=== PATIENT | male | born 1950 | race Caucasian/White ===

== ENCOUNTER 2021-08-24 15:46 | Emergency (ER) | payer OTHER ==
[2021-08-24] MEDS ORDERED: NA CHLORIDE 0.9% 250 ML ONE (16:06)
[2021-08-24] MEDS ORDERED: CASIRIVIMAB/IMDEVIMAB 10 ML VIAL ONE (16:08)
--- NOTE | 2021-08-24 17:47 | EDPHYS ---
Physician Documentation [facility] Name: Kai Peres Age: 71 yrs Sex: Male : 1950 Arrival Date: 08/24/2021 Time: 15:47 Bed 5 Private MD: ED Physician Michael Hanson HPI: 08/24 16:11 This 71 yrs old Male presents to ER via Ambulatory with complaints of Covid + -Wants kb Infusion. 16:12 The patient or guardian reports cough, that is intermittent, described as mild. Onset: kb The symptoms/episode began/occurred yesterday. Severity of symptoms: At their worst the symptoms were mild, in the emergency department the symptoms are unchanged. Modifying factors: The symptoms are alleviated by nothing, the symptoms are aggravated by nothing. Associated signs and symptoms: Pertinent positives: fever, Pertinent negatives: chest pain, diarrhea, ear ache, nausea, rhinorrhea, sore throat, vomiting. The patient has not experienced similar symptoms in the past. The patient has not recently seen a physician. Pt reports cough, fever, and bodyaches that started yesterday. States he was exposed to someone with covid, took 2 home tests this morning and both were positive. States he read about the monoclonal antibodies and came to have the infusion.. Historical: - Allergies: 16:05 Aquaphor; vg1 - Home Meds: 16:05 Simvastatin Oral [Active]; vg1 - PMHx: 16:05 Hypercholesterolemia; Squamous Cell Carcinoma; vg1 - Immunization history:: Client reports receiving the 2nd dose of the Covid vaccine. - Social history:: Smoking status: Patient reports use of chewing tobacco. ROS: 16:11 Cardiovascular: Negative for chest pain, palpitations, and edema. kb 16:11 Constitutional: Positive for body aches, chills, fever. 16:11 Respiratory: Positive for cough, Negative for dyspnea on exertion, hemoptysis, orthopnea, pleurisy, shortness of breath, sputum production. 16:11 All other systems are negative. Exam: 16:11 Constitutional: This is a well developed, well nourished patient who is awake, alert, kb and in no acute distress. Head/Face: Normocephalic, atraumatic. ENT: Moist Mucous membranes Respiratory: Respirations even and unlabored. No increased work of breathing, no retractions or nasal flaring. Skin: Warm, dry with normal turgor. Normal color. MS/ Extremity: Pulses equal, no cyanosis. Neurovascular intact. Full, normal range of motion. Neuro: Awake and alert, GCS 15, oriented to person, place, time, and situation. Moves all extremities. Normal gait. Psych: Awake, alert, with orientation to person, place and time. Behavior, mood, and affect are within normal limits. Vital Signs: 16:03 BP 139 / 79; Pulse 76; Resp 18; Temp 99.5; Pulse Ox 100% ; Weight 113.4 kg; Height 6 vg1 ft. 2 in. (187.96 cm); Pain 0/10; 17:30 BP 139 / 80; Pulse 65; Resp 17; Pulse Ox 100% ; kd3 16:03 Body Mass Index 32.10 (113.40 kg, 187.96 cm) vg1 MDM: 15:51 Patient medically screened. kb 16:10 Data reviewed: vital signs, nurses notes. Data interpreted: Pulse oximetry: on room air kb is 100 %. Interpretation: normal. 17:46 Counseling: I had a detailed discussion with the patient and/or guardian regarding: the kb historical points, exam findings, and any diagnostic results supporting the discharge/admit diagnosis, the need for outpatient follow up, a family practitioner, to return to the emergency department if symptoms worsen or persist or if there are any questions or concerns that arise at home. Administered Medications: 16:30 Drug: REGEN-COV Dose Pack 120 mg/mL-120 mg/mL (EUA) 1 application Route: IV; Rate: kd3 calculated rate; Site: right forearm; 17:30 Follow up: IV Status: Completed infusion; IV Intake: 100ml kd3 17:30 Follow up: IV Status: Completed infusion; IV Intake: 100ml kd3 17:50 Drug: Tessalon Perle (benzonatate) 100 mg Route: PO; kd3 17:57 Follow up: Response: No adverse reaction kd3 Disposition Summary: 08/24/21 17:46 Discharge Ordered Location: Home kb Condition: Stable kb Diagnosis - Coronavirus infection, unspecified kb Followup: kb - With: Emergency Department - When: As needed - Reason: Worsening of condition Followup: kb - With: Private Physician - When: 2 - 3 days - Reason: Recheck today's complaints, Continuance of care, Re-evaluation by your physician Discharge Instructions: - Discharge Summary Sheet kb - COVID-19 kb Forms: - Medication Reconciliation Form kb - Thank You Letter kb - Antibiotic Education kb - Prescription Opioid Use kb Prescriptions: - Tessalon Perles 100 mg Oral Capsule - take 1 capsule by ORAL route every 8 hours As needed; 15 capsule; Refills: 0, kb Product Selection Permitted Signatures: Oliva Radford, Shahla Etienne, RN RN vg1 Asha Damon RN RN kd3
--- NOTE | 2021-08-24 17:47 | ER ---
Nurse's Notes [facility] Name: Kai Peres Age: 71 yrs Sex: Male : 1950 Arrival Date: 08/24/2021 Time: 15:47 Bed 5 Private MD: Diagnosis: Coronavirus infection, unspecified Presentation: 08/24 16:03 Chief complaint: Patient states: cough x2 days and 'low grade fever' yesterday. States vg1 took a home covid test and results were positive. Denies chest pain. Coronavirus screen: Vaccine status: Patient reports receiving the 2nd dose of the covid vaccine. Client denies travel out of the [place] in the last 14 days. Ebola Screen: Patient negative for fever greater than or equal to 101.5 degrees Fahrenheit, and additional compatible Ebola Virus Disease symptoms. Initial Sepsis Screen: Does the patient meet any 2 criteria? No. Patient's initial sepsis screen is negative. Does the patient have a suspected source of infection? No. Patient's initial sepsis screen is negative. Risk Assessment: Do you want to hurt yourself or someone else? Patient reports no desire to harm self or others. Onset of symptoms was August 22, 2021. 16:03 Method Of Arrival: Ambulatory vg1 16:03 Acuity: ERIK 3 vg1 Triage Assessment: 16:05 General: Appears in no apparent distress. comfortable, Behavior is calm, cooperative. vg1 Pain: Denies pain. 16:05 EENT: Reports nasal congestion. Neuro: No deficits noted. Cardiovascular: No deficits kd3 noted. Respiratory: Reports cough that is Airway is patent Respiratory effort is even, unlabored, Respiratory pattern is regular, symmetrical, Breath sounds are clear bilaterally. GI: No signs and/or symptoms were reported involving the gastrointestinal system. : No signs and/or symptoms were reported regarding the genitourinary system. Derm: No deficits noted. Musculoskeletal: No deficits noted. Historical: - Allergies: 16:05 Aquaphor; vg1 - Home Meds: 16:05 Simvastatin Oral [Active]; vg1 - PMHx: 16:05 Hypercholesterolemia; Squamous Cell Carcinoma; vg1 - Immunization history:: Client reports receiving the 2nd dose of the Covid vaccine. - Social history:: Smoking status: Patient reports use of chewing tobacco. Screenin:05 Abuse screen: Denies threats or abuse. Denies injuries from another. Nutritional kd3 screening: No deficits noted. Tuberculosis screening: No symptoms or risk factors identified. Fall Risk None identified. Assessment: 16:05 General: SEE TRIAGE NOTE. kd3 17:30 Reassessment: PT D/C ON HOLD FOR OBS TIME. REGEN-COV COMPLETED. kd3 18:31 Reassessment: pt dc home ambulatory. diagnosis COVID. kd3 Vital Signs: 16:03 BP 139 / 79; Pulse 76; Resp 18; Temp 99.5; Pulse Ox 100% ; Weight 113.4 kg; Height 6 vg1 ft. 2 in. (187.96 cm); Pain 0/10; 17:30 BP 139 / 80; Pulse 65; Resp 17; Pulse Ox 100% ; kd3 16:03 Body Mass Index 32.10 (113.40 kg, 187.96 cm) vg1 ED Course: 15:47 Patient arrived in ED. ds1 15:51 Oliva Radford [facility]-C [facility] kb 15:51 Michael Hanson MD is Attending Physician. kb 15:56 Asha Damon RN is Primary Nurse. kd3 16:00 Inserted saline lock: 22 gauge in right forearm, using aseptic technique. kd3 16:05 Triage completed. vg1 16:05 Arm band placed on. vg1 16:05 Patient has correct armband on for positive identification. Bed in low position. Call kd3 light in reach. Side rails up X2. 17:30 IV discontinued, intact, bleeding controlled, No redness/swelling at site. Pressure kd3 dressing applied. 18:31 No provider procedures requiring assistance completed. kd3 Administered Medications: 16:30 Drug: REGEN-COV Dose Pack 120 mg/mL-120 mg/mL (EUA) 1 application Route: IV; Rate: kd3 calculated rate; Site: right forearm; 17:30 Follow up: IV Status: Completed infusion; IV Intake: 100ml kd3 17:30 Follow up: IV Status: Completed infusion; IV Intake: 100ml kd3 17:50 Drug: Tessalon Perle (benzonatate) 100 mg Route: PO; kd3 17:57 Follow up: Response: No adverse reaction kd3 Intake: 17:30 IV: 100ml; Total: 100ml. kd3 17:30 IV: 100ml; Total: 200ml. kd3 Outcome: 17:46 Discharge ordered by . uzma 18:31 Discharged to home ambulatory. kd3 18:31 Condition: stable 18:31 Discharge instructions given to patient, Instructed on discharge instructions, follow up and referral plans. medication usage, Demonstrated understanding of instructions, follow-up care, medications, Prescriptions given X 1. 18:32 Patient left the ED. kd3 Signatures: Oliva Radford, TEMPLATE WORKER-C TEMPLATE WORKER-Ila Xie ds1 Shahla Blackman, RN RN vg1 Asha Damon, RN RN kd3
[2021-08-24] MEDS ORDERED: BENZONATATE 100 MG CAP PO ONE (17:51)
[2021-08-24 18:38] VITALS: TEMP 99.5; O2SAT 100
[2021-08-24 18:40] VITALS: BP 139/80
== END 2021-08-24 18:32 | disposition home or self-care (01) ==
LOC: ER 15:46
DX: U07.1 COVID-19 (principal); E78.00 Pure hypercholesterolemia, unspecified; F17.220 Nicotine dependence, chewing tobacco, uncomplicated; Z88.8 Allergy status to other drugs, medicaments and biological substances
CPT/HCPCS: 96365; 99283; J7050

== ENCOUNTER 2022-08-15 19:29 | Observation (INO) | payer OTHER ==
--- OUTSIDE RECORDS SUMMARY | 2022-08-15 19:34 | XMS REPORT | Continuity of Care Document ---
:1950 Author Organization [facility] t Address [address] [place] [address] [address]. [address] [place] [address] Care Team Providers Name Role Phone Darnell Thacker Attending Clinician Unavailable Miguel A Attending Clinician Unavailable Darnell Thacker Attending Clinician [phone] Darnell Thacker Admitting Clinician Unavailable Miguel A Admitting Clinician Unavailable Payers Payer Name Policy Type Policy Number Effective Date Expiration Date S ruy MEDICARE B-[place]: [id number] 2016 [email or web address] 00:00:00 [employer] (MEDICARE [id number] SUPPLEMENT) Problems Condition Condition Condition Status Onset Resolution Last Treating Co mments Source Name Details Category Date Date Treatment Clinician Date Acute tear Acute Tear Problem Active A zalea of lateral of Lateral 6-29 Or thope meniscus Meniscus 00:00: dic of left of Left 00 Sports knee Knee Medicin e Pain in Pain in Problem Active Monika left lower Left Lower 6-29 Or thope limb Limb 00:00: dic 00 Sports Medicin e Swelling Swelling Problem Active Azale a of lower of Lower 6-29 Orthop e leg Leg 00:00: dic 00 Sports Medicin e Acute tear Acute Tear Problem Active A zalea of medial of Medial 6-29 Orth ope meniscus Meniscus 00:00: dic of left of Left 00 Sports knee Knee Medicin e Tear of Tear of Problem Active Monika lateral Lateral 6-15 Orthope meniscus Meniscus 00:00: dic of knee of Knee 00 Sports Medicin e Tear of Tear of Problem Active Monika medial Medial 02-28 Orthope meniscus Meniscus 00:00: dic of knee of Knee 00 Sports Medicin e Chondromal Chondromal Problem Active A zaameea acia of acia of 02-28 Orthope left knee Left Knee 00:00: dic 00 Sports Medicin e Pain of Pain of Problem Active Monika left knee Left Knee 02-28 Orth ope joint Joint 00:00: dic 00 Sports Medicin e Allergies, Adverse Reactions, Alerts Allergy Allergy Status Severity Reaction(s) Onset Inactive Treating Comm ents Source Name Type Date Date Clinician No Known DA Active [facility] 02-28 [place] [facility] 00:[facility]: [facility] 00 [facility] Social History Smoking Status Start Date Stop Date Source Never Smoker [facility] Sports Medicine Medications Ordered Filled Start Stop Current Ordering Indication Dosage Frequency Signature Comments Components Source Medication Medication Date Date Medication? Clinician (SIG) Name Name azmaria del carmentayla azithromyci No azithromyc Monika n 250 mg n 250 mg in 250 mg Or thope tablet TAKE tablet TAKE tablet dic 2 TABLETS 2 TABLETS TAKE 2 Spo rts BY MOUTH BY MOUTH TABLETS BY M edicin TODAY, THEN TODAY, THEN MOUTH e TAKE 1 TAKE 1 TODAY, TABLET TABLET THEN TAKE DAILY FOR 4 DAILY FOR 4 1 TABLET DAYS DAYS DAILY FOR 4 DAYS benzonatate benzonatate No benzonatat Monika 100 mg 100 mg e 100 mg Orthope capsule capsule capsule dic TAKE 1 TAKE 1 TAKE 1 Sports CAPSULE BY CAPSULE BY CAPSULE BY Medicin MOUTH EVERY MOUTH EVERY MOUTH e 8 HOURS 8 HOURS EVERY 8 NEEDED FOR NEEDED FOR HOURS COUGH COUGH NEEDED FOR COUGH fluticasone fluticasone No fluticason Monika propionate propionate e Ort hope 50 50 propionate dic mcg/actuati mcg/actuati 50 S ports on nasal on nasal mcg/actuat M edicin spray,suspe spray,suspe ion nasal e nsion 2 nsion 2 spray,susp PUFFS NASAL PUFFS NASAL ension 2 EVERY EVERY PUFFS MORNING MORNING NASAL EVERY MORNING montelukast montelukast No montelukas Monika 10 mg 10 mg t 10 mg Orthope tablet TAKE tablet TAKE tablet dic 1 TABLET BY 1 TABLET BY TAKE 1 Sports MOUTH EVERY MOUTH EVERY TABLET BY Medicin DAY IN THE DAY IN THE MOUTH e MORNING MORNING EVERY DAY IN THE MORNING mupirocin 2 mupirocin 2 No mupirocin Monika % topical % topical 2 % Ortho pe ointment ointment topical dic APPLY TO APPLY TO ointment Spo rts OPEN SORES OPEN SORES APPLY TO Medicin ON LEG ON LEG OPEN SORES e TWICE A DAY TWICE A DAY ON LEG TWICE A DAY prednisone prednisone No prednisone Monika 10 mg 10 mg 10 mg Orthope tablet TAKE tablet TAKE tablet dic 1 TABLET BY 1 TABLET BY TAKE 1 Sports MOUTH TWICE MOUTH TWICE TABLET BY Medicin A DAY A DAY MOUTH e TWICE A DAY simvastatin simvastatin No simvastati Monika 20 mg 20 mg n 20 mg [facility]ope tablet TAKE tablet TAKE tablet dic 1 TABLET BY 1 TABLET BY TAKE 1 Sports MOUTH EVERY MOUTH EVERY TABLET BY Medicin DAY IN THE DAY IN THE MOUTH e EVENING EVENING EVERY DAY IN THE EVENING triamcinolo triamcinolo No triamcinol Monika ne ne one Orthope acetonide acetonide acetonide dic 0.1 % 0.1 % 0.1 % Sports topical topical topical Medici n cream APPLY cream APPLY cream e TWICE DAILY TWICE DAILY APPLY TO RASH ON TO RASH ON TWICE ABDOMEN UP ABDOMEN UP DAILY TO TO 2 TO 2 RASH ON WEEKS/MONTH WEEKS/MONTH ABDOMEN UP NEEDED. NEEDED. TO 2 WEEKS/SONJA H NEEDED. triamcinolo triamcinolo No triamcinol Monika ne ne one Orthope acetonide acetonide acetonide dic 0.1 % 0.1 % 0.1 % Se[employer] topical topical topical Medici n ointment ointment ointment e APPLY TO APPLY TO APPLY TO AFFECTED AFFECTED AFFECTED AREA TWICE AREA TWICE AREA TWICE A DAY FOR 2 A DAY FOR 2 A DAY FOR WEEKS TO A WEEKS TO A 2 WEEKS TO MONTH MONTH A MONTH acetaminoph acetaminoph No 1 Q6H acetaminop Monika en 300 en 300 hen 300 Orthope mg-codeine mg-codeine mg-codeine dic 30 mg 30 mg 30 mg Sports tablet Take tablet Take tablet Medicin 1 tablet 1 tablet Take 1 e every 6 every 6 tablet hours by hours by every 6 oral route oral route hours by as needed. as needed. oral route as needed. aspirin 81 aspirin 81 No 1 Q1D aspirin 81 Monika mg mg mg Orthope tablet,ian tablet,ian tablet,del dic yed release yed release ayed S ports Take 1 Take 1 release Medicin tablet tablet Take 1 e every day every day tablet by oral by oral every day route as route as by oral directed. directed. route as directed. azithromyci azithromyci No azithromyc Monika n 250 mg n 250 mg in 250 mg Or thope tablet TAKE tablet TAKE tablet dic 2 TABLETS 2 TABLETS TAKE 2 Spo rts BY MOUTH BY MOUTH TABLETS BY M edicin TODAY, THEN TODAY, THEN MOUTH e TAKE 1 TAKE 1 TODAY, TABLET TABLET THEN TAKE DAILY FOR 4 DAILY FOR 4 1 TABLET DAYS DAYS DAILY FOR 4 DAYS benzonatate benzonatate No benzonatat Monika 100 mg 100 mg e 100 mg Orthope capsule capsule capsule dic TAKE 1 TAKE 1 TAKE 1 Sports CAPSULE BY CAPSULE BY CAPSULE BY Medicin MOUTH EVERY MOUTH EVERY MOUTH e 8 HOURS 8 HOURS EVERY 8 NEEDED FOR NEEDED FOR HOURS COUGH COUGH NEEDED FOR COUGH fluticasone fluticasone No fluticason Monika propionate propionate e Ort hope 50 50 propionate dic mcg/actuati mcg/actuati 50 S ports on nasal on nasal mcg/actuat M edicin spray,suspe spray,suspe ion nasal e nsion 2 nsion 2 spray,susp PUFFS NASAL PUFFS NASAL ension 2 EVERY EVERY PUFFS MORNING MORNING NASAL EVERY MORNING metaxalone metaxalone No metaxalone Monika 800 mg 800 mg 800 mg [facility] tablet TAKE tablet TAKE tablet dic 1 TABLET BY 1 TABLET BY TAKE 1 Sports MOUTH THREE MOUTH THREE TABLET BY Medicin TIMES DAILY TIMES DAILY MOUTH e NEEDED NEEDED THREE TIMES DAILY NEEDED methocarbam methocarbam No 1 Q6H methocarba Monika ol 500 mg ol 500 mg mol 500 mg Orthope tablet Take tablet Take tablet dic 1 tablet 1 tablet Take 1 Sport s every 6 every 6 tablet Medicin hours by hours by every 6 e oral route oral route hours by as needed. as needed. oral route as needed. montelukast montelukast No montelukas Monika 10 mg 10 mg t 10 mg Orthope tablet TAKE tablet TAKE tablet dic 1 TABLET BY 1 TABLET BY TAKE 1 Sports MOUTH EVERY MOUTH EVERY TABLET BY Medicin DAY IN THE DAY IN THE MOUTH e MORNING MORNING EVERY DAY IN THE MORNING mupirocin 2 mupirocin 2 No mupirocin Monika % topical % topical 2 % Ortho pe ointment ointment topical dic APPLY TO APPLY TO ointment Spo rts OPEN SORES OPEN SORES APPLY TO Medicin ON LEG ON LEG OPEN SORES e TWICE A DAY TWICE A DAY ON LEG TWICE A DAY ondansetron ondansetron No 1 Q4H ondansetro Monika HCl 4 mg HCl 4 mg n HCl 4 mg O rthope tablet Take tablet Take tablet dic 1 tablet 1 tablet Take 1 Sport s every 4 every 4 tablet Medicin hours by hours by every 4 e oral route oral route hours by as needed. as needed. oral route as needed. prednisone prednisone No prednisone Monika 10 mg 10 mg 10 mg [facility] tablet TAKE tablet TAKE tablet dic 1 TABLET BY 1 TABLET BY TAKE 1 Sports MOUTH TWICE MOUTH TWICE TABLET BY Medicin A DAY A DAY MOUTH e TWICE A DAY simvastatin simvastatin No simvastati Monika 20 mg 20 mg n 20 mg [facility] tablet TAKE tablet TAKE tablet dic 1 TABLET BY 1 TABLET BY TAKE 1 Sports MOUTH EVERY MOUTH EVERY TABLET BY Medicin DAY IN THE DAY IN THE MOUTH e EVENING EVENING EVERY DAY IN THE EVENING triamcinolo triamcinolo No triamcinol Monika ne ne one Orthope acetonide acetonide acetonide dic 0.1 % 0.1 % 0.1 % SeatMe topical topical topical Medici n cream APPLY cream APPLY cream e TWICE DAILY TWICE DAILY APPLY TO RASH ON TO RASH ON TWICE ABDOMEN UP ABDOMEN UP DAILY TO TO 2 TO 2 RASH ON WEEKS/MONTH WEEKS/MONTH ABDOMEN UP NEEDED. NEEDED. TO 2 WEEKS/SONJA H NEEDED. triamcinolo triamcinolo No triamcinol Monika ne ne one Orthope acetonide acetonide acetonide dic 0.1 % 0.1 % 0.1 % SeatMe topical topical topical Medici n ointment ointment ointment e APPLY TO APPLY TO APPLY TO AFFECTED AFFECTED AFFECTED AREA TWICE AREA TWICE AREA TWICE A DAY FOR 2 A DAY FOR 2 A DAY FOR WEEKS TO A WEEKS TO A 2 WEEKS TO MONTH MONTH A MONTH acetaminoph acetaminoph No acetaminop Monika en 300 en 300 hen 300 Orthope mg-codeine mg-codeine mg-codeine dic 30 mg 30 mg 30 mg Sports tablet TAKE tablet TAKE tablet Medicin 1 TABLET BY 1 TABLET BY TAKE 1 e MOUTH EVERY MOUTH EVERY TABLET BY 6 HOURS 6 HOURS MOUTH NEEDED NEEDED EVERY 6 HOURS NEEDED aspirin 81 aspirin 81 No 1 Q1D aspirin 81 Monika mg mg mg Orthope tablet,ian tablet,ian tablet,del dic yed release yed release ayed S ports Take 1 Take 1 release Medicin tablet tablet Take 1 e every day every day tablet by oral by oral every day route as route as by oral directed. directed. route as directed. azithromyci azithromyci No azithromyc Monika n 250 mg n 250 mg in 250 mg Or thope tablet TAKE tablet TAKE tablet dic 2 TABLETS 2 TABLETS TAKE 2 Spo rts BY MOUTH BY MOUTH TABLETS BY M edicin TODAY, THEN TODAY, THEN MOUTH e TAKE 1 TAKE 1 TODAY, TABLET TABLET THEN TAKE DAILY FOR 4 DAILY FOR 4 1 TABLET DAYS DAYS DAILY FOR 4 DAYS benzonatate benzonatate No benzonatat Monika 100 mg 100 mg e 100 mg [facility] capsule capsule capsule dic TAKE 1 TAKE 1 TAKE 1 Sports CAPSULE BY CAPSULE BY CAPSULE BY Medicin MOUTH EVERY MOUTH EVERY MOUTH e 8 HOURS 8 HOURS EVERY 8 NEEDED FOR NEEDED FOR HOURS COUGH COUGH NEEDED FOR COUGH fluticasone fluticasone No fluticason Monika propionate propionate e Ort hope 50 50 propionate dic mcg/actuati mcg/actuati 50 S ports on nasal on nasal mcg/actuat M edicin spray,suspe spray,suspe ion nasal e nsion 2 nsion 2 spray,susp PUFFS NASAL PUFFS NASAL ension 2 EVERY EVERY PUFFS MORNING MORNING NASAL EVERY MORNING metaxalone metaxalone No metaxalone Monika 800 mg 800 mg 800 mg [facility] tablet TAKE tablet TAKE tablet dic 1 TABLET BY 1 TABLET BY TAKE 1 Sports MOUTH THREE MOUTH THREE TABLET BY Medicin TIMES DAILY TIMES DAILY MOUTH e NEEDED NEEDED THREE TIMES DAILY NEEDED methocarbam methocarbam No methocarba Monika ol 500 mg ol 500 mg mol 500 mg [facility] tablet TAKE tablet TAKE tablet dic 1 TABLET BY 1 TABLET BY TAKE 1 Sports MOUTH EVERY MOUTH EVERY TABLET BY Medicin 6 HOURS 6 HOURS MOUTH e NEEDED NEEDED EVERY 6 HOURS NEEDED montelukast montelukast No montelukas Monika 10 mg 10 mg t 10 mg [facility] tablet TAKE tablet TAKE tablet dic 1 TABLET BY 1 TABLET BY TAKE 1 Sports MOUTH EVERY MOUTH EVERY TABLET BY Medicin DAY IN THE DAY IN THE MOUTH e MORNING MORNING EVERY DAY IN THE MORNING mupirocin 2 mupirocin 2 No mupirocin Monika % topical % topical 2 % Ortho pe ointment ointment topical dic APPLY TO APPLY TO ointment Spo rts OPEN SORES OPEN SORES APPLY TO Medicin ON LEG ON LEG OPEN SORES e TWICE A DAY TWICE A DAY ON LEG TWICE A DAY ondansetron ondansetron No ondansetro Monika HCl 4 mg HCl 4 mg n HCl 4 mg O rthope tablet TAKE tablet TAKE tablet dic 1 TABLET BY 1 TABLET BY TAKE 1 Sports MOUTH EVERY MOUTH EVERY TABLET BY Medicin 4 HOURS 4 HOURS MOUTH e NEEDED NEEDED EVERY 4 HOURS NEEDED prednisone prednisone No prednisone Monika 10 mg 10 mg 10 mg [facility] tablet TAKE tablet TAKE tablet dic 1 TABLET BY 1 TABLET BY TAKE 1 Sports MOUTH TWICE MOUTH TWICE TABLET BY Medicin A DAY A DAY MOUTH e TWICE A DAY simvastatin simvastatin No simvastati Monika 20 mg 20 mg n 20 mg [facility] tablet TAKE tablet TAKE tablet dic 1 TABLET BY 1 TABLET BY TAKE 1 Sports MOUTH EVERY MOUTH EVERY TABLET BY Medicin DAY IN THE DAY IN THE MOUTH e EVENING EVENING EVERY DAY IN THE EVENING triamcinolo triamcinolo No triamcinol Monika ne ne one [facility]ope acetonide acetonide acetonide dic 0.1 % 0.1 % 0.1 % Sports topical topical topical Medici n cream APPLY cream APPLY cream e TWICE DAILY TWICE DAILY APPLY TO RASH ON TO RASH ON TWICE ABDOMEN UP ABDOMEN UP DAILY TO TO 2 TO 2 RASH ON WEEKS/MONTH WEEKS/MONTH ABDOMEN UP NEEDED. NEEDED. TO 2 WEEKS/SONJA H NEEDED. triamcinolo triamcinolo No triamcinol Monika ne ne one Orthope acetonide acetonide acetonide dic 0.1 % 0.1 % 0.1 % Sports topical topical topical Medici n ointment ointment ointment e APPLY TO APPLY TO APPLY TO AFFECTED AFFECTED AFFECTED AREA TWICE AREA TWICE AREA TWICE A DAY FOR 2 A DAY FOR 2 A DAY FOR WEEKS TO A WEEKS TO A 2 WEEKS TO MONTH MONTH A MONTH Vital Signs Vital Name Observation Time Observation Value Comments Source Height 2022-03-28 00:00:00 73 [in_i] [facility] BMI (Body Mass 2022-03-28 00:00:00 35.6 kg/m2 [facility] Index) Sports Medicine Body Weight 2022-03-28 00:00:00 270 [lb_av] [facility] Height 2022-02-28 00:00:00 73 [in_i] [facility] BMI (Body Mass 2022-02-28 00:00:00 35.6 kg/m2 [facility] Index) Sports Medicine Body Weight 2022-02-28 00:00:00 270 [lb_av] [facility] Procedures Procedure Date / Time Performed Performing Clinician Sourc e US, doppler, venous 2022-03-28 00:00:00 [facility] Encounters Start End Encounter Admission Attending Care Care Encounter Source Date/Time Date/Time Type Type Clinicians Facility Department ID 2022-03-20 Inpatient RYAN HinojosaARIE DAVISTO [id number] [facility] 11:55:00 Darnell [id number] [place] [facility] 2022-03-28 2022-03-28 Outpatient FOG_Mathews AOSM AOSM [id number] Monika 12:14:00 12:14:00 _Emily [id number] Orth ope dic Sports Medicin e 2022-03-28 2022-03-28 Outpatient FOG_Mathews AOSM AOSM [id number] Monika 12:14:00 12:14:00 _Emily [id number] Orth ope dic Sports Medicin e 2022-03-28 2022-03-28 Outpatient NE Hinojosa RADI [id number] [facility] 11:28:00 11:28:00 Darnell Lopez [place] [facility] 2022-03-28 2022-03-28 Outpatient WASHINGTON Thacker AOSM [id number] 00:00:00 00:00:00 Darnell Abel [id number] 2022-03-28 2022-03-28 Darnell Abel AOS[facility] [place] - Ortho [id number] Monika 00:00:00 00:00:00 MD Kedar: Vielka Roche - Orthope [address] [facility] [place] [address] , Ph. [phone] 2022-03-14 2022-03-14 Outpatient FOG_Mathews AOSM AOSM [id number] Monika 03:03:00 03:03:00 _Emily [id number] Orth ope dic Sports Medicin e 2022-03-13 2022-03-13 Outpatient FOG_Mathews AOSM AOSM [id number] Monika 09:50:00 09:50:00 _Emily [id number] Orth ope dic Sports Medicin e 2022-03-09 2022-03-09 Outpatient NE Hinojosa DAYS [id number] [facility] 08:57:00 08:57:00 Darnell Thompson [place] [facility] 2022-03-09 2022-03-09 Outpatient NE HinojosaTO [id number] [facility] 08:57:00 08:57:00 Darnell [id number] [place] [facility] 2022-03-09 2022-03-09 Outpatient Kedar AOIVONE AOSM [id number] 00:00:00 00:00:00 Patrick Page [id number] 2022-03-09 2022-03-09 Darnell Page AOSM [place] - Ortho [id number] Monika 00:00:00 00:00:00 MD Kedar: Vielka Roche - Orthope [address] , [place], [place] [address] , Ph. [phone] 2022-02-28 2022-02-28 Outpatient FOG_Mathews AOSM AOSM [id number] Monika 12:43:00 12:43:00 _Emily [id number] Orth ope dic Sports Medicin e 2022-02-28 2022-02-28 Outpatient FOG_Mathews AOSM AOSM [id number] Monika 12:43:00 12:43:00 _Emily [id number] Orth ope dic Sports Medicin e 2022-02-28 2022-02-28 Darnell Page AOSM [place] - Ortho [id number] Monika 00:00:00 00:00:00 MD Kedar: Viekla Roche - Orthope [address] [facility] [place] [address] , Ph. [phone] 2022-02-28 2022-02-28 Outpatient W[place] Thacker [facility] [id number] 00:00:00 00:00:00 Darnell Abel [id number] 2022-01-15 2022-01-15 Outpatient [facility] [id number] Monika 11:35:00 11:35:00 _Andra_ [id number] Orth ope dic Sports Medicin e Results Test Description Test Time Test Comments Results Result Comments Source - DUP VEIN UNI/LTD 2022-03-28 13:07:00 [facility] : 1950 Sex: M Patient Name: JASON WREN Unit No: [id number] EXAMS: CPT CODE: [id number] DUP VEIN UNI/LTD 07897 LEFT LOWER EXTREMITY VENOUS DOPPLER DIAGNOSIS: No evidence for deep venous thrombosis from the groin to the popliteal fossa. The anterior and posterior tibial veins are patent in the calf and the posterior tibial vein is patent at the ankle. COMMENT: COMPARISON: No prior exams available. Multiple real-time, color and duplex Doppler images were obtained. In the areas described no echogenic thrombus was seen. Normal compressibility, augmentation and spontaneous color-flow are observed. at 1307 Reported and signed by: Zafar Lucero MD CC: Darnell Thacker MD Technologist: BUNNY FRASER RDMS, RVT Transcribed D/ (7087) Shaggy [facility] NAME: JASON WREN [address] [facility] PHYS: Darnell Sanchez MD : 1950 AGE: 71 SEX: M [place] [address] LOC: Y.RAD PHONE #: [phone] EXAM DATE: 03/28/2022 STATUS: REG CLI FAX #: [phone] RAD #: D/C DT PAGE 1 Signed Report Patient Name: JASON WREN Unit No: [id number] EXAMS: CPT CODE: [id number] [facility] 04523 (Continued) Orig Print D/T: S: 03/28/2022 (1310) [facility] NAME: JASON WREN [address] [facility] PHYS: Darnell Sanchez MD : 1950 AGE: 71 SEX: M [place] [address] LOC: Y.RAD PHONE #: [phone] EXAM DATE: 03/28/2022 STATUS: REG CLI FAX #: [phone] RAD #: D/C DT PAGE 2 Signed Report COMPREHENSIVE METABOLIC PANEL 2022-02-28 15:36:00 Test Item Value Reference Range Interpretation Comme nts SODIUM (test code = NA) 142 mmol/L 136-145 N POTASSIUM (test code = K) 4.9 mmol/L 3.5-5.1 N CHLORIDE (test code = CL) 104.0 mmol/L 98-107 N CARBON DIOXIDE (test code = CO2) 30.6 mmol/L 21-32 N GLUCOSE (test code = GLU) 96 mg/dL 70-110 N BLOOD UREA NITROGEN (test code = 19 mg/dL 7-18 H BUN) GLOMERULAR FILTRATION RATE (test 81.3 >60 Unit of measure: mL/min/1.73 code = GFR) [id number] Ran ge:Healthy Adults >90 mL/m in/1.73 m2 For Chronic Kid pedro Disease: Stage II Mild D ecrease in GFR 60-90 Stage III Moderate Decrease in GFR 30-59 Stage IV Severe Decre ase in GFR 15-29 Stage V K idney Failure <15 CREATININE (test code = CREAT) 0.92 mg/dL 0.55-1.30 N TOTAL PROTEIN (test code = PROT) 7.4 g/dL 6.4-8.2 N ALBUMIN (test code = ALB) 4.1 g/dL 3.4-5.0 N GLOBULIN (test code = GLOB) 3.3 g/dL 2.2-4.2 N ALBUMIN/GLOBULIN RATIO (test 1.2 0.7-2.0 N code = A/G) CALCIUM (test code = CA) 9.7 mg/dL 8.2-10.1 N BILIRUBIN TOTAL (test code = 0.70 mg/dL 0.2-1.00 N BILT) SGOT/AST (test code = AST) 26.0 U/L 15-37 N SGPT/ALT (test code = ALT) 34.0 U/L 12-78 N P lease note new normal range. ALKALINE PHOSPHATASE TOTAL (test 60 U/L 46-116 N code = ALKP) CBC W/AUTO [id number] 15:07:00 Test Item Value Reference Range Interpretation Comments WHITE BLOOD CELL (test code = WBC) 7.0 K/mm3 5.7-10.5 N RED BLOOD CELL (test code = RBC) 4.76 M/mm3 4.2-5.4 N HEMOGLOBIN (test code = HGB) 15.3 g/dL 12-16 N HEMATOCRIT (test code = HCT) 44.5 % 37-47 N MEAN CELL VOLUME (test code = MCV) 94 fL 80-98 N MEAN CELL HGB (test code = MCH) 32.1 pg 27-34 N MEAN CELL HGB CONCENTRATION (test 34.4 g/dL 30.8-34.1 H code = MCHC) RED CELL DISTRIBUTION WIDTH (test 13.0 % 11-16 N code = RDW) PLT (test code = PLT) 227 K/mm3 130-400 N MEAN PLATELET VOLUME (test code = 10.0 fL 8.9-12.1 N MPV) NEUTROPHIL % (test code = NT%) 56.3 % 45-70 N LYMPHOCYTE % (test code = LY%) 29.9 % 20-40 N MONOCYTE % (test code = MO%) 10.2 % 3-10 H EOSINOPHIL % (test code = EO%) 2.2 % 1-5 N BASOPHIL % (test code = BA%) 1.0 % 0.0-1.1 N NEUTROPHIL # (test code = NT#) 3.91 K/mm3 2.00-7.50 N LYMPHOCYTE # (test code = LY#) 2.08 K/mm3 1.50-4.00 N MONOCYTE # (test code = MO#) 0.71 K/mm3 0.2-0.8 N EOSINOPHIL # (test code = EO#) 0.15 K/mm3 0.04-0.4 N BASOPHIL # (test code = BA#) 0.07 K/mm3 0.02-0.10 N MANUAL DIFF REQUIRED (test code = NO MANUAL DIFF MDIFF) NUCLEATED RED BLOOD CELL (test 0 % 0-0 N code = NRBC)
[2022-08-15 21:42] LABS: Absolute Lymphocytes (CBC) 2.1 K/uL (0.7-4.9); Hematocrit 43.8 % (39.6-49.0); Lymphocytes % 25.5 % (15.3-44.8); MCV 94.2 fL (80-100); MPV 8.3 fL (7.6-11.3); RBC Red Blood Cell Count 4.64 M/uL (4.33-5.43)
--- NOTE | 2022-08-15 21:58 | RAD REPORT ---
EXAM DESCRIPTION: RAD - Chest Single View - 08/15/2022 9:37 pm CLINICAL HISTORY: near syncope Chest pain. COMPARISON: No comparisons FINDINGS: Portable technique limits examination quality. The lungs are grossly clear. The heart is normal in size. No displaced fractures. IMPRESSION: No acute intrathoracic process suspected.
[2022-08-15 22:06] LABS: Magnesium 2.4 mg/dL (1.8-2.4)
[2022-08-15 22:08] LABS: Troponin High Sensitivity 60.5 pg/mL (<58.9)
--- NOTE | 2022-08-16 01:14 | EDPHYS ---
Physician Documentation [facility] Name: Kai Peres Age: 72 yrs Sex: Male : 1950 Arrival Date: 08/15/2022 Time: 19:33 Bed 8 Private MD: ED Physician Marky Cuadra HPI: 08/15 20:47 This 72 yrs old Male presents to ER via Ambulatory with complaints of Dizziness, rt General Weakness, LOW BLOOD PRESSURE. 20:47 The patient presents with lightheadedness. Onset: The symptoms/episode began/occurred rt this morning. Modifying factors: The symptoms are alleviated by nothing, the symptoms are aggravated by nothing. Associated signs and symptoms: Pertinent negatives: headache, nausea. Severity of symptoms: At their worst the symptoms were moderate in the emergency department the symptoms have resolved. Presents to the ED with a lightheadedness starting today. Patient states that he said a sore throat, descriptions of hayfever was recently started on medications by his primary care. He states that over the past week, he has felt intermittently lightheaded, had a more intense episode today prompting him to come to the ED for further evaluation. He states his blood pressure was normal at his PCPs office, states that it was about 90 at home today when he checked it when he had the more intense symptoms. He reported having palpitations with an irregular heart rate. He had reported a vague discomfort in his chest. He states that the symptoms have completely resolved without any treatment. He states that he feels well. He denies other acute complaints at this time, symptoms are moderate severity, no other aggravating or alleviating factors.. Historical: - Allergies: 19:49 Aquaphor; kd3 - Home Meds: 19:49 Simvastatin Oral [Active]; montelukast oral [Active]; Flonase Nasal [Active]; kd3 Azithromycin Oral [Active]; Sara Oral [Active]; - PMHx: 19:49 Hypercholesterolemia; squamous cell carcinoma; kd3 - Immunization history:: Adult Immunizations up to date. - Social history:: Smoking status: Patient denies any tobacco usage or history of. - Family history:: not pertinent. ROS: 20:47 Constitutional: Negative for fever, chills, and weight loss, Eyes: Negative for injury, rt pain, redness, and discharge. 20:47 Neck: Negative for injury, pain, and swelling, Respiratory: Negative for shortness of breath, cough, wheezing, and pleuritic chest pain, Abdomen/GI: Negative for abdominal pain, nausea, vomiting, diarrhea, and constipation, Back: Negative for injury and pain, MS/Extremity: Negative for injury and deformity, Skin: Negative for injury, rash, and discoloration, Neuro: Negative for headache, weakness, numbness, tingling, and seizure, Psych: Negative for depression, anxiety, suicide ideation, homicidal ideation, and hallucinations. 20:47 ENT: Positive for rhinorrhea, sore throat. 20:47 Cardiovascular: Positive for Lightheadedness, denies chest pain. Exam: 20:47 Constitutional: This is a well developed, well nourished patient who is awake, alert, rt and in no acute distress. Head/Face: Normocephalic, atraumatic. Eyes: Pupils equal round and reactive to light, extra-ocular motions intact. Lids and lashes normal. Conjunctiva and sclera are non-icteric and not injected. Cornea within normal limits. Periorbital areas with no swelling, redness, or edema. ENT: Nares patent. No nasal discharge, no septal abnormalities noted. Tympanic membranes are normal and external auditory canals are clear. Oropharynx with no redness, swelling, or masses, exudates, or evidence of obstruction, uvula midline. Mucous membranes moist. Neck: Trachea midline, no thyromegaly or masses palpated, and no cervical lymphadenopathy. Supple, full range of motion without nuchal rigidity, or vertebral point tenderness. No Meningismus. Chest/axilla: Normal chest wall appearance and motion. Nontender with no deformity. No lesions are appreciated. Cardiovascular: Regular rate and rhythm with a normal S1 and S2. No gallops, murmurs, or rubs. Normal PMI, no JVD. No pulse deficits. Respiratory: Lungs have equal breath sounds bilaterally, clear to auscultation and percussion. No rales, rhonchi or wheezes noted. No increased work of breathing, no retractions or nasal flaring. Abdomen/GI: Soft, non-tender, with normal bowel sounds. No distension or tympany. No guarding or rebound. No evidence of tenderness throughout. Back: No spinal tenderness. No costovertebral tenderness. Full range of motion. Skin: Warm, dry with normal turgor. Normal color with no rashes, no lesions, and no evidence of cellulitis. MS/ Extremity: Pulses equal, no cyanosis. Neurovascular intact. Full, normal range of motion. Neuro: Awake and alert, GCS 15, oriented to person, place, time, and situation. Cranial nerves II-XII grossly intact. Motor strength 5/5 in all extremities. Sensory grossly intact. Cerebellar exam normal. Normal gait. Psych: Awake, alert, with orientation to person, place and time. Behavior, mood, and affect are within normal limits. 21:13 ECG was reviewed by the Attending Physician. rt Vital Signs: 19:43 BP 109 / 64; Pulse 92; kd3 19:52 BP 105 / 71; Pulse 82; Resp 18; Temp 98.4(O); Pulse Ox 100% on R/A; Weight 123.38 kg; kd3 Height 6 ft. 2 in. (187.96 cm); 22:30 BP 112 / 91; Pulse 72; Resp 17 S; Pulse Ox 97% on R/A; as6 23:34 BP 126 / 80; Pulse 65; Resp 16 S; Pulse Ox 100% on R/A; as6 08/16 01:00 BP 122 / 71; Pulse 63; Resp 18 S; Pulse Ox 100% on R/A; as6 03:00 BP 134 / 78; Pulse 67; Resp 17 S; Pulse Ox 100% on R/A; as6 08/15 19:52 Body Mass Index 34.92 (123.38 kg, 187.96 cm) kd3 MDM: 08/15 20:30 Patient medically screened. rt 08/16 01:14 Differential diagnosis: cardiac arrhythmia, hypovolemia, syncope. Data reviewed: vital rt signs, nurses notes, lab test result(s), EKG, radiologic studies. ED course: Patient presents to the ED with palpitations, near syncope, vague chest tightness. Patient has a slightly elevated troponin initially, repeat troponin is elevating, will admit for further care. EKG is unremarkable. Do not suspect PE, TAD.. 08/15 20:45 Order name: Basic Metabolic Panel; Complete Time: 22:11 rt 08/15 20:45 Order name: CBC with Diff; Complete Time: 21:59 rt 08/15 20:45 Order name: Magnesium; Complete Time: 22:11 rt 08/15 20:45 Order name: NT PRO-BNP; Complete Time: 22:11 rt 08/15 20:45 Order name: Troponin HS; Complete Time: 22:11 rt 08/16 00:08 Order name: Troponin High Sensitivity; Complete Time: 00:55 as6 08/15 20:45 Order name: XRAY Chest (1 view); Complete Time: 21:59 rt 08/16 07:05 Order name: SARS RAPID eb 08/16 09:19 Order name: SARS-COV-2 Antigen Rapid EDMD 08/16 09:59 Order name: Creatine Phosphokinase EDMD 08/16 09:59 Order name: CKMB Creatine Kinase MB EDMD 08/16 09:59 Order name: Troponin High Sensitivity EDMD 08/16 09:59 Order name: Lipid Profile EDMD 08/16 12:23 Order name: Urine Dipstick-Ancillary EDMD 08/15 20:45 Order name: EKG; Complete Time: 20:46 rt 08/15 20:45 Order name: Cardiac monitoring; Complete Time: 21:15 rt 08/15 20:45 Order name: EKG - Nurse/Tech; Complete Time: 21:15 rt 08/15 20:45 Order name: IV Saline Lock; Complete Time: 21:15 rt 08/15 20:45 Order name: Labs collected and sent; Complete Time: 21:15 rt 08/15 20:45 Order name: O2 Per Protocol; Complete Time: 21:15 rt 08/15 20:45 Order name: O2 Sat Monitoring; Complete Time: 21:15 rt 08/16 02:23 Order name: Carotid Artery Bilateral EDMD 08/16 13:48 Order name: NM EDMD EC/16 21:13 Rate is 71 beats/min. Rhythm is regular, Normal Sinus Rhythm. QRS [place] is Normal. IA rt interval is normal. QRS interval is normal. QT interval is normal. No Q waves. T waves are Normal. No ST changes noted. Clinical impression: Normal ECG. Interpreted by me. Reviewed by me. Administered Medications: No medications were administered Disposition: 08/16 06:57 Co-signature as Attending Physician, Marky Cuadra MD. Co-signature as Attending rt Physician, Marky Cuadra MD I agree with the assessment and plan of care. Disposition Summary: 11/17/22 01:13 Hospitalization Ordered Hospitalization Status: Observation rt Provider: Zhane Thacker rt Condition: Stable rt Problem: new rt Symptoms: have improved rt Bed/Room Type: Standard rt Location: [facility] ER HOLD(08/16/22 04:50) cg Room Assignment: ERHOLD-(08/16/22 04:50) cg Diagnosis - Syncope Near rt Forms: - Medication Reconciliation Form rt - SBAR form rt Signatures: Dispatcher [employer] EDSarah Melgar RN RN cg Asha Damon RN RN kd3 Zhane Thacker, PA-C PA-C sb4 Marky Cuadra MD MD rt Corrections: (The following items were deleted from the chart) 04:12 01:13 Telemetry/MedSurg (observation) rt sb4 04:12 01:13 rt sb4 04:13 04:12 [facility] ER HOLD sb4 sb4 04:13 04:12 sb4 sb4 04:50 04:13 Telemetry/MedSurg (observation) sb4 cg 04:50 04:13 sb4 cg
--- NOTE | 2022-08-16 01:14 | ER ---
Nurse's Notes [facility] Name: Kai Peres Age: 72 yrs Sex: Male : 1950 Arrival Date: 08/15/2022 Time: 19:33 Bed 8 Private MD: Diagnosis: Syncope Near Presentation: 08/15 19:43 Chief complaint: Patient states: this morning I woke up and my nasal passages were kd3 inflamed and my throat was hurting and i went to the doctor today. my blood pressure at the doctors was in the 140. This evening, I was very light headed. My blood pressure was running in the 90's. I do dip snuff and I took my Flonase today, im not sure if that has to do with it. but when my blood pressure was low my heart rate was elevated. Coronavirus screen: Vaccine status: Patient reports receiving the 2nd dose of the covid vaccine. [email or web address]. Ebola Screen: No symptoms or risks identified at this time. Initial Sepsis Screen: Does the patient meet any 2 criteria? No. Patient's initial sepsis screen is negative. Does the patient have a suspected source of infection? No. Patient's initial sepsis screen is negative. Risk Assessment: Do you want to hurt yourself or someone else? Patient reports no desire to harm self or others. Onset of symptoms was August 15, 2022. 19:43 Method Of Arrival: Ambulatory 3 19:43 Acuity: ERIK 3 kd3 Triage Assessment: 19:49 General: Appears in no apparent distress. Behavior is calm, cooperative. Pain: Denies kd3 pain. Neuro: Level of Consciousness is awake, alert, obeys commands, Oriented to person, place, time, situation. Cardiovascular: Patient's skin is warm and dry. Respiratory: Airway is patent Trachea midline Respiratory effort is even, unlabored, Respiratory pattern is regular, symmetrical. Historical: - Allergies: 19:49 Aquaphor; kd3 - Home Meds: 19:49 Simvastatin Oral [Active]; montelukast oral [Active]; Flonase Nasal [Active]; kd3 Azithromycin Oral [Active]; Sara Oral [Active]; - PMHx: 19:49 Hypercholesterolemia; squamous cell carcinoma; kd3 - Immunization history:: Adult Immunizations up to date. - Social history:: Smoking status: Patient denies any tobacco usage or history of. - Family history:: not pertinent. Screenin:26 Abuse screen: Denies threats or abuse. Denies injuries from another. Nutritional as6 screening: No deficits noted. Tuberculosis screening: No symptoms or risk factors identified. Fall Risk None identified. Assessment: 20:45 General: Appears in no apparent distress. Behavior is calm, cooperative, "at home I as6 felt really dizzy and lightheaded. I feel normal now". Pain: Denies pain. Neuro: Level of Consciousness is awake, alert, obeys commands. Respiratory: Respiratory effort is even, unlabored. 22:08 Reassessment: Trop 60.5, Provider notified. vc1 22:30 General: pt ambulating to bathroom with even and steady gait . as6 Vital Signs: 19:43 BP 109 / 64; Pulse 92; kd3 19:52 BP 105 / 71; Pulse 82; Resp 18; Temp 98.4(O); Pulse Ox 100% on R/A; Weight 123.38 kg; kd3 Height 6 ft. 2 in. (187.96 cm); 22:30 BP 112 / 91; Pulse 72; Resp 17 S; Pulse Ox 97% on R/A; as6 23:34 BP 126 / 80; Pulse 65; Resp 16 S; Pulse Ox 100% on R/A; as6 08/16 01:00 BP 122 / 71; Pulse 63; Resp 18 S; Pulse Ox 100% on R/A; as6 03:00 BP 134 / 78; Pulse 67; Resp 17 S; Pulse Ox 100% on R/A; as6 08/15 19:52 Body Mass Index 34.92 (123.38 kg, 187.96 cm) kd3 ED Course: 08/15 19:33 Patient arrived in ED. dt4 19:49 Triage completed. kd3 19:49 Arm band placed on right wrist. kd3 19:55 Marky Cuadra MD is Attending Physician. rt 20:28 Jack Pascual, PARMINDER is Primary Nurse. as6 21:14 Inserted saline lock: 20 gauge in left antecubital area, using aseptic technique. Blood as6 collected. 21:15 Basic Metabolic Panel Sent. as6 21:15 CBC with Diff Sent. as6 21:15 Magnesium Sent. as6 21:15 NT PRO-BNP Sent. as6 21:15 Troponin HS Sent. as6 21:27 Bed in low position. Call light in reach. Side rails up X 1. Client placed on as6 continuous cardiac and pulse oximetry monitoring. NIBP monitoring applied. Warm blanket given. 21:39 XRAY Chest (1 view) In Process Unspecified. EDMS 08/16 01:12 Zhane Thacker PA-C is Hospitalizing Provider. rt 04:22 No provider procedures requiring assistance completed. Patient admitted, IV remains in as6 place. 07:25 Primary Nurse role handed off by Jack Pascual RN eb 07:36 Shea Sanchez, RN is Primary Nurse. li Administered Medications: No medications were administered Medication: 04:23 VIS not applicable for this client. as6 Outcome: 01:13 Decision to Hospitalize by Provider. rt 04:22 Admitted to ER Hold. [facility] documentation. as6 04:22 Condition: stable 04:22 Instructed on the need for admit. 15:38 Patient left the ED. li Signatures: Dispatcher [employer] EDMD Chelle Uriarte Jack Pascual, RN RN as6 Asha Damon RN RN kd3 Amira Sparks RN RN 1 Adela Mireles dt4 Shea Sanchez, RN RN mb9 Marky Cuadra MD MD rt
--- NOTE | 2022-08-16 02:12 | P.HP ---
Certification for Inpatient Patient admitted to: Observation With expected LOS: <2 Midnights Patient will require the following post-hospital care: None Practitioner: I am a practitioner with admitting privileges, knowledge of patient current condition, hospital course, and medical plan of care. Services: Services provided to patient in accordance with Admission requirements found in Title 42 Section 412.3 of the Code of Federal Regulations Patient History Date of Service: 08/16/22 Primary Care Provider: Eliel Reason for admission: Unstable Angina History of Present Illness: Patient is a 72 year old male with hyperlipemia who presented to the ED with complaints of light headedness and chest discomfort. Patient reports that he has had a few of these episodes over the past few weeks but hasn't thought much of it. Today, he checked his blood pressure and HR while the episode was occurring and noticed he was tachycardic and borderline hypotensive. Additionally, he reports some diaphoresis and chest discomfort. Patient does dip but does not smoke. Upon arrival to ED, his vital signs were stable. EKG with NSR. Initial tr oponin was 60. Repeat after 3 hours was 125. Patient states his symptoms have completely resolved at this time. He does not have a cardiac history and has not had any cardiac work up in over 10 years. Vital signs have been stable. Patient is admitted for further evaluation and management. Home medications list reviewed: Yes - Past Medical/Surgical History Diabetic: No -: Hyperlipidemia -: Squamous Cell Carcinoma -: Bilateral knee surgery -: Left rotator cuff repair -: Hernia Repair Psychosocial/ Personal History: Patient lives at home with his . - Family History Father -: Hypertension, Cancer - Social History Smoking Status: Never smoker Alcohol use: No CD- Drugs: No Caffeine use: Yes Place of Residence: Home Review of Systems Cardiovascular: Palpitations, Light Headedness Physical Examination - Physical Exam General: Alert, In no apparent distress HEENT: Atraumatic, PERRLA, EOMI, Sclerae nonicteric Neck: Supple, 2+ carotid pulse no bruit, No LAD, Without JVD or thyroid abnormality Respiratory: Clear to auscultation bilaterally, Normal air movement Cardiovascular: Regular rate/rhythm, Normal S1 S2 Gastrointestinal: Normal bowel sounds, No tenderness Musculoskeletal: No tenderness Integumentary: No rashes Neurological: Normal speech, Normal strength at 5/5 x4 extr, Normal tone, Normal affect - Studies Laboratory Data (last 24 hrs) 08/15/22 21:12: WBC 8.10, Hgb 14.9, Hct 43.8, Plt Count 234 08/15/22 21:12: Sodium 141, Potassium 4.0, BUN 26 H, Creatinine 1.58 H, Glucose 110 H, Magnesium 2.4 Assessment and Plan - Problems (Diagnosis) (1) Unstable angina Current Visit: Yes Status: Acute (2) Hyperlipidemia Current Visit: Yes Status: Acute Qualifiers: Hyperlipidemia type: unspecified Qualified Code(s): E78.5 - Hyperlipidemia, unspecified (3) Elevated troponin Current Visit: Yes Status: Acute - Plan Patient is admitted for observation. Cardiology consulted. Echo, carotid US, lipid panel, and TSH ordered Troponin HS trending up. 60 -> 125. Continue to trend serial cardiac enzymes. No active chest pain. EKG without abnormalities. Aspirin and statin daily (patient is currently on statin daily but not aspirin). Monitor and replete electrolytes per protocol. Reconcile and continue home medications. Lovenox for VTE prophylaxis. Full code Discussed at length plan with patient and his as they are very concerned- cardiology consult, echo/carotid, stress test (either inpatient or outpatient), potential cardiac cath. Discharge Plan: Home Plan to discharge in: 24 Hours - Advance Directives Does patient have a Living Will: No Does patient have a Durable POA for Healthcare: No - Code Status/Comfort Care Code Status Assessed: Yes (Full) Critical Care: No Time Spent Managing Pts Care (In Minutes): 50
[2022-08-16] MEDS ORDERED: ASPIRIN EC 81 MG TAB PO ONE ×2 (02:21→09:16)
[2022-08-16] MEDS ORDERED: ACETAMINOPHEN 500 MG TAB PO PRN (07:29)
[2022-08-16] MEDS ORDERED: ONDANSETRON 4 MG/2 ML VIAL IV PRN (07:29)
[2022-08-16] MEDS ORDERED: ENOXAPARIN 40 MG/0.4 ML SQ SCH (09:00)
[2022-08-16] MEDS ORDERED: ENOXAPARIN 40 MG/0.4 ML SQ ONE (09:17)
--- NOTE | 2022-08-16 09:17 | RAD REPORT ---
EXAM DESCRIPTION: - CP - 08/16/2022 2:52 am CLINICAL HISTORY: near syncope Headache, drowsiness, CVA symptomology COMPARISON: No comparisons TECHNIQUE: Real-time sonographic evaluation of both carotid systems was performed. Doppler interroga tion was performed with waveform tracing bilaterally. FINDINGS: Normal high resistance waveforms are noted in both external carotid arteries. The common c arotid arteries and internal carotid arteries show normal low resistance waveforms. Mild soft plaque is present involving both carotid bulbs. Peak systolic and end diastolic velocity va lues and the ICA/CCA ratios are in the non-hemodynamically significant range. Antegrade flow seen in both vertebral arteries. IMPRESSION: Evidence of mild soft plaque involving both carotid bulbs. No evidence of a hemodynamically significant stenosis.
[2022-08-16 09:19] LABS: SARS-CoV-2 Antigen Rapid Res Negative (Negative)
[2022-08-16 09:57] LABS: CKMB Creatine Kinase MB 2.7 ng/mL (1.0-3.6)
[2022-08-16 09:59] LABS: Troponin High Sensitivity 127.4 pg/mL (<58.9)
[2022-08-16 10:59] VITALS: BMI 35.6
[2022-08-16] MEDS ORDERED: REGADENOSON 0.4 MG/5 ML SYR IV ONE (11:33)
[2022-08-16] MEDS ORDERED: METOPROLOL TAR 25 MG TAB PO ONE (11:42)
--- NOTE | 2022-08-16 11:49 | P.DS ---
Discharge Date: 08/16/22 Primary Care Provider: Eliel Reason for Admission: Unstable Angina Brief History of Present Illness: Patient is a 72 year old male with hyperlipemia who presented to the ED with complaints of light headedness and chest discomfort. Patient reports that he has had a few of these episodes over the past few weeks but hasn't thought much of it. Today, he checked his blood pressure and HR while the episode was occurring and noticed he was tachycardic and borderline hypotensive. Additionally, he reports some diaphoresis and chest discomfort. Patient does dip but does not smoke. Upon arrival to ED, his vital signs were stable. EKG with NSR. Initial troponin was 60. Repeat after 3 hours was 125. Patient states his symptoms have completely resolved at this time. He does not have a cardiac history and has not had any cardiac work up in over 10 years. Vital signs have been stable. Patient is admitted for further evaluation and management. Hospital Course: Pt is clinically doing well. Patient's troponin slightly elevated. Stress test is pending. If this is negative patient should be stable for discharge with outpatient follow-up. Vital Signs/Physical Exam: Temp Pulse Resp BP Pulse Ox 98.4 F 68 16 146/83 H 100 08/16/22 08:00 08/16/22 08:00 08/16/22 08:00 08/16/22 08:00 08/16/22 08:00 General: Alert, In no apparent distress, Oriented x3 Laboratory Data at Discharge: WBC 8.10 K/uL (4.3-10.9) 08/15/22 21:12 Hgb 14.9 g/dL (13.6-17.9) 08/15/22 21:12 Hct 43.8 % (39.6-49.0) 08/15/22 21:12 Plt Count 234 K/uL (152-406) 08/15/22 21:12 Sodium 141 mmol/L (136-145) 08/15/22 21:12 Potassium 4.0 mmol/L (3.5-5.1) 08/15/22 21:12 BUN 26 mg/dL (7-18) H 08/15/22 21:12 Creatinine 1.58 mg/dL (0.55-1.3) H 08/15/22 21:12 Glucose 110 mg/dL (74-106) H 08/15/22 21:12 Magnesium 2.4 mg/dL (1.8-2.4) 08/15/22 21:12 Triglycerides 200 mg/dL (<150) H 08/16/22 09:23 Cholesterol 186 mg/dL (<200) 08/16/22 09:23 HDL Cholesterol 51 mg/dL (40-60) 08/16/22 09:23 Cholesterol/HDL Ratio 3.65 08/16/22 09:23 Physician Discharge Instructions: -DC IV and DC home -Follow-up with PCP in 1 to 2 weeks -Follow-up with Cardiology in 1 to 2 weeks -Please call Dr. Ordoñez at [phone] if any questions regarding hospital stay -Please call nursing station at [phone] if any nursing or medication questions -Return to the emergency room if symptoms worsen Diet: AHA Activity: Fall precautions Followup: NONE,NONE [Primary Care Provider] - Time spent managing pt's care (in minutes): 35
[2022-08-16] MEDS ORDERED: NA CHLORIDE 0.9% 1,000 ML IV SCH (12:00)
[2022-08-16 12:23] LABS: Urine Blood Negative (Negative); Urine Glucose Negative (Negative); Urine Protein Negative (Negative)
[2022-08-16 12:31] VITALS: TEMP 98
[2022-08-16 12:37] VITALS: BP 113/71
[2022-08-16] MEDS ORDERED: METOPROLOL TAR 25 MG TAB ONE (12:45)
[2022-08-16] MEDS ORDERED: NA CHLORIDE 0.9% 1,000 ML ONE (12:46)
--- NOTE | 2022-08-16 13:48 | RAD REPORT ---
EXAM DESCRIPTION: NM - Rest Stress Cardiac Imaging - 08/16/2022 1:07 pm CLINICAL HISTORY: Elevated Troponin Chest pain. COMPARISON: No comparisons TECHNIQUE: The patient was administered approximately 10mCi of Tc 99m Sestamibi prior to resting SPE CT imaging of the heart. The patient was then administered approximately 30 mCi of Tc 99m Sestamibi f ollowing exercise or pharmacologic stress. Multiplanar SPECT images were reviewed. FINDINGS: No stress induced ischemic defect is seen to suggest stress induced ischemia. No fixed def ect is seen to suggest hibernating myocardium or scarred myocardium. The end diastolic volume is 124 ml, the end systolic volume is 61 ml, and the ejection fraction is 51 %. IMPRESSION: No stress induced ischemia.
--- NOTE | 2022-08-16 14:21 | TREADPHA ---
DX: ELEVATED TROPONIN Date of Study: 08/16/2022 Ht: 6' 1 " Wt: 270 lb 0 oz Consulting Physician: SRI MEDICATIONS: SIMVASTIN, ASPIRIN HISTORY: HYPERLIPIDEMIA PHYSICIAL EXAMINATION: RESTING B.P.: 138/88 RESTING H.R.: 57 RESTING EKG: WITHIN NORMAL LIMITS PROTOCOL: PHARMACOLOGIC EXERCISE TIME: 3:30 B.P. AT [place]AK STRESS: 138/88 IMPRESSION: LEXISCAN STRESS TEST PERFORMED. CARDIOLITE INJECTED PER PROTOCOL. NO SUPRAVENTRICULAR TACHYCARDIA, NO VENTRICULAR TACHYCARDIA NOTED. NO CHEST PAIN. POSITIVE CHEST TIGHTNESS. MULTIPLE PREMATURE VENTRICULAR COMPLEXES NOTED BEFORE, DURING AND AFTER PROCEDURE. NO EKG CHANGES OF ISCHEMIA WITH LEXISCAN. FREQUENT PREMATURE VENTRICULAR COMPLEXES NOTED.
--- NOTE | 2022-08-16 14:24 | ECHO ---
HEIGHT: 6 ft 1 in WEIGHT: 270 lb 0 oz DATE OF STUDY: 08/16/[address]: Hunter Lopez MD 2-DIMENSIONAL: YES M.MODE: YES DOPPLER: YES COLOR FLOW: YES TDS: PORTABLE: YES DEFINITY: BUBBLE STUDY: DIAGNOSIS: ELEVATED TROPONIN CARDIAC HISTORY: CATHERIZATION: NO SURGERY: NO PROSTHETIC VALVE: NO PACEMAKER: NO MEASUREMENTS (cm) DIASTOLIC (NORMALS) SYSTOLIC (NORMALS) IVSd 1.0 (0.6-1.2) LA Diam 2.3 (1.9-4.0) LVEF 66% LVIDd 4.5 (3.5-5.7) LVIDs 2.9 (2.0-3.5) %FS 36% LVPWd 1.2 (0.6-1.2) Ao Diam 2.6 (2.0-3.7) 2 DIMENSIONAL ASSESSMENT: RIGHT ATRIUM: NORMAL LEFT ATRIUM: NORMAL RIGHT VENTRICLE: NORMAL LEFT VENTRICLE: NORMAL TRICUSPID VALVE: NORMAL MITRAL VALVE: MILD MITRAL REGURGITATION PULMONIC VALVE: NORMAL AORTIC VALVE: NORMAL PERICARDIAL EFFUSION: NONE AORTIC ROOT: NORMAL LEFT VENTRICULAR WALL MOTION: NORMAL DOPPLER/COLOR FLOW: SEE BELOW COMMENTS: 1. POOR WINDOWS. 2. NORMAL LEFT VENTRICULAR EJECTION FRACTION 60-65%. 3. MILD DIASTOLIC DYSFUNCTION 4. MILD MITRAL REGURGITATION. TECHNOLOGIST: GUERLINE STANFORD
--- NOTE | 2022-08-16 15:17 | CON ---
Date of Consultation: 08/16/2022 The patient admitted today to Dr. Cazares's service on 08/06/2022. I saw the patient 08/16/2022. Reason For Consultation: Elevated troponin. History Of Present Illness: Mr. Peres is a gentleman with a history of dyslipidemia. Came in with weakness, dizziness, low blood pressure. Has had flu-like symptoms and just started Zithromax. He was found to have an unremarkable EKG, unremarkable chest x-ray, his creatinine 1.58, troponin was 13 5. He denied any syncope or palpitation. Denied any fever or chills. Past Medical History: As stated above. Allergies: HE IS ALLERGIC TO AQUAPHOR. Medications: At home include Zocor and Flonase. Review of Systems: Negative. Social History: Negative. Family History: Noncontributory. Physical Examination: Vital Signs: Stable, afebrile. HEENT: Negative. Neck: Supple with no bruit. Chest: Clear. Cardiac: Normal. Abdomen: Benign. Extremities: Revealed no clubbing, cyanosis, or edema. Diagnostic Data: As stated earlier. Impression And Plan: Atypical symptoms including weakness, dizziness, low blood pressure, possibly s econdary to dehydration from recent infection. Certainly, coronary artery disease needs to be ruled out. Echocardiogram which was done so far is perfectly normal without any wall motion abnormalities. He has a carotid that is pending. He has a Lexiscan that is pending. We will see what that shows before making further decisions. SUKI/CELENA Voice ID: [id number] Report ID: [id number]
[2022-08-16 15:59] VITALS: O2SAT 100
[2022-08-16] MEDS ORDERED: METOPROLOL TAR 25 MG TAB PO SCH (18:00)
--- NOTE | 2022-08-18 19:19 | EKG ---
Test Date: 2022-08-15 Test Time: 20:58:01 Tc Operator: MEASUREMENT RESULTS: Intervals: Rate: 71 MS: 192 QRSD: 92 QT: 366 QTc: 397 [place]: P: 58 MS: 192 QRS: -16 T: 25 INTERPRETIVE STATEMENTS: Normal sinus rhythm Normal ECG Compared to ECG 05/08/2006 14:55:44 No significant changes Electronically Signed On 08-18-22 19:11:15 SALES OPERATIONS ASSOCIATE by Hunter Lopez
== END 2022-08-16 15:28 | disposition home or self-care (01) ==
LOC: ER 19:29 → ERHOLD 08-16 02:36
PROVIDERS: ADMIT Hospitalist; ATTEND Hospitalist
DX: I20.0 Unstable angina (principal); R77.8 Other specified abnormalities of plasma proteins; E78.5 Hyperlipidemia, unspecified; F17.220 Nicotine dependence, chewing tobacco, uncomplicated; Z82.49 Family history of ischemic heart disease and other diseases of the circulatory system; Z80.9 Family history of malignant neoplasm, unspecified; Z20.822 Contact with and (suspected) exposure to COVID-19; Z88.8 Allergy status to other drugs, medicaments and biological substances
CPT/HCPCS: 93005; 93017; 93306; 85025; 80048; 36415; 83735; 82550; 80061; 81003; 84484 ×3; 82553; 83880; 71045; 93880; 78452; 99285; 87811; J1650; J2785; J7030; A9500; G0378 ×2

== ENCOUNTER 2024-10-29 12:57 | Day surgery (SDC) | payer OTHER ==
[2024-10-26 13:26] LABS: Absolute Lymphocytes (CBC) 1.4 K/uL (0.7-4.9); Absolute Monocytes 0.5 K/uL (0.1-1.3); Absolute Neutrophil 4.5 K/uL (1.8-8.0); Basophils % 0.4 % (0-1.3); Eosinophils % 0.7 % (0-4.4); Hematocrit 44.8 % (39.6-49.0); Hemoglobin 15.6 g/dL (13.6-17.9); Lymphocytes % 21.9 % (15.3-44.8); MCH 33.1 pg (27.0-35.0); MCHC 34.9 g/dL (32.0-36.0); MCV 94.8 fL (80-100); MPV 7.9 fL (7.6-11.3); Monocytes % 8.2 % (3.3-12.3); Neutrophils % 68.8 % (41.7-73.7); Platelets 200 thou/uL (152-406); RBC Red Blood Cell Count 4.72 M/uL (4.33-5.43)
--- NOTE | 2024-10-26 13:29 | RAD REPORT ---
EXAM: Chest Single View HISTORY: preop COMPARISON: 08/15/2022 FINDINGS: LUNGS/PLEURA: The lungs are clear. No pleural effusions or pneumothorax. No pulmonary edema. MEDIASTINUM: The mediastinal silhouette is within normal limits. CARDIAC: The cardiac silhouette is within normal limits. UPPER ABDOMEN: No significant abnormality. BONES: No acute abnormality. LINES/TUBES/OTHER: N/A IMPRESSION: No evidence of acute cardiopulmonary disease.
[2024-10-26 13:39] LABS: PT Prothrombin Time 10.8 SECONDS (9.4-12.5); PTT, Activated Partial Thromb 27.5 SECONDS (24.3-36.9); Protime INR 1.03
--- NOTE | 2024-10-28 12:34 | EKG ---
Test Date: 2024-10-26 Test Time: 14:34:30 Developer Evangelist: KELLY MEASUREMENT RESULTS: Intervals: Rate: 62 ID: [id number] QRSD: 76 QT: 392 QTc: 397 [place]: P: 72 ID: [id number] QRS: 1 T: 33 INTERPRETIVE STATEMENTS: Normal sinus rhythm Normal ECG Compared to ECG 08/15/2022 20:58:01 No significant changes Electronically Signed On 10-28-24 12:31:22 DEVELOPMENT DIRECTOR by Michael Messer
[2024-10-29 14:12] LABS: Anion Gap 11.1 mEq/L (5.0-15.0); Potassium 4.1 mEq/L (3.5-5.1)
[2024-10-29] MEDS ORDERED: HEPA 1000U/500MLS 1,000 UNIT/500 ML BAG IV ONE (14:33)
[2024-10-29] MEDS ORDERED: HEPARIN 10,000 UNIT/10 ML VIAL IV ONE (14:33)
[2024-10-29] MEDS ORDERED: MIDAZOLAM HCL 2 MG/2 ML INJ ONE (14:34)
[2024-10-29] MEDS ORDERED: VERAPAMIL HCL 10 MG/4 ML VIAL IV ONE (14:34)
[2024-10-29] MEDS ORDERED: ATROPINE SULF 1 MG/10 ML SYR IV ONE (14:34)
[2024-10-29] MEDS ORDERED: LIDOCAINE 1% 20 ML MDV ONE (14:34)
[2024-10-29] MEDS ORDERED: CLOPIDOGREL 75 MG TABLET ONE (14:35)
[2024-10-29] MEDS ORDERED: ASPIRIN 325 MG TAB ONE (14:35)
[2024-10-29] MEDS ORDERED: TICAGRELOR 90 MG TABLET PO ONE (14:35)
[2024-10-29] MEDS ORDERED: FENTANYL CITR 100 MCG/2 ML ONE (14:35)
[2024-10-29] MEDS ORDERED: HEPARIN 5000 UNIT/ML 1 ML VIAL ONE (14:35)
[2024-10-29] MEDS ORDERED: REGADENOSON 0.4 MG/5 ML SYR IV ONE (16:01)
[2024-10-29] MEDS: NA CHLORIDE 0.9% 500 ML ONE (16:30)
[2024-10-29 19:10] VITALS: O2SAT 99
[2024-10-29 19:37] VITALS: BP 104/83; TEMP 97.7
--- NOTE | 2024-10-29 22:05 | OP ---
Date of Procedure: 10/29/2024 Surgeon: CELESTINA JEAN BAPTISTE Procedures Performed: 1. Selective coronary angiogram. 2. Left heart catheterization. 3. FFR of proximal RCA and moderate stenosis, which was insignificant at 0.92. Indications: 1. Ventricular tachycardia. 2. Chest pain. Access: Right radial artery 6-Chadian, closed with TR band. Complications: None. Bleeding: Less than 50 mL. Anesthesia: Total sedation time was 50 minutes. Used fentanyl and Versed. Description Of Procedure: After risks, and benefits, and alternatives were explained, the patient ag sabas to procedure and signed informed consent. The patient was brought into cardiac catheterization laboratory, prepped and draped in usual sterile fashion. Then, I accessed right radial artery using pediatric micropuncture kit, placed 6-Chadian Slender sheath. Took 5-Chadian [place] 4.0 catheter into a ortic root across the aortic valve, measured the LVEDP. Pullback did not record any gradient and the n engaged the left main, took standard views and then in the RCA, took standard views, and then there was a significant narrowing of the proximal RCA and then I exchanged for a 6-Chadian 3DRC guide and g ave systemic heparin to assure ACT level above 250, engaged the RCA and took FFR wire into the aortic root. Pressures were equalized and then wire was advanced to the RCA passing area of stenosis and F FR was performed using Lexiscan. It was not significant at 0.92, and then wire was removed. There w as no drift. Final angiogram showed complete resolution of that with the pseudostenosis which was in fact a coronary spasm. So then I removed the wire for angiogram, satisfactorily removed the guide a nd the sheath, placed TR band with good hemostasis. Findings: 1. Left main is normal. 2. LAD is normal. Normal diagonal branches. 3. Left circumflex; large size vessel with mid to distal 30% focal stenosis. 4. RCA; large and dominant. Initially had what appeared to be 60% in the proximal RCA, but it was du e to spasm. FFR was negative. There is mid RCA 40% stenosis and with negative FFR of 0.92. Rest of RCA is normal. 5. LVEDP is normal at 10 mmHg. Conclusion: Very [id number] coronary artery disease with negative FFR of RCA. Recommendation: Medical management. SR/MODL Voice ID: [id number] Report ID: [id number]
== END 2024-10-29 19:36 | disposition home or self-care (01) ==
LOC: CCL 12:57
PROVIDERS: ATTEND Internal Medicine
DX: I25.110 Atherosclerotic heart disease of native coronary artery with unstable angina pectoris (principal); I47.20 Ventricular tachycardia, unspecified; I11.0 Hypertensive heart disease with heart failure; I50.32 Chronic diastolic (congestive) heart failure; I65.23 Occlusion and stenosis of bilateral carotid arteries; E78.2 Mixed hyperlipidemia; F17.220 Nicotine dependence, chewing tobacco, uncomplicated; Z79.899 Other long term (current) drug therapy; Z88.8 Allergy status to other drugs, medicaments and biological substances
CPT/HCPCS: 93005; 85025; 80048; 36415 ×2; 85610; 85347; 85730; 71045; 93458; 76937; 93571; C1893; Q9966; J1644; J2785; J2003; J2250; J3010; J7040; C1769; 99152; 99153; J0461

== ENCOUNTER 2024-12-23 20:03 | Emergency (ER) | payer OTHER ==
--- OUTSIDE RECORDS SUMMARY | 2024-12-23 20:08 | XMS REPORT | Continuity of Care Document ---
Author Name Unknown Address [address] [facility] [address] [place] [address] Organization [facility] [place] Address [address] [place] [address] [address] [place] [address] Care Team Providers Care Hip Hop Artist Name Role Phone Darnell Thacker Attending Clinician Unavailable Pepe_Tita Attending Clinician Unavailable Miguel A Attending Clinician Unavail able Darnell Thacker Attending Clinician [phone] Darnell Thacker Admitting Clinician Unavailable Pepe_Tita Admitting Clinician Unavailable Miguel A Admitting Clinician Unavail able Payers Payer Name Policy Type Policy Number Effective Date Expirati on Date Source MEDIC[place]: Contacts+ [id number] 2016 00:00:00 [employer] (MEDICARE SUPPLEMENT) [id number] Problems Condition Name Condition Details Condition Category Status Onset Date Resolution Date Last Treatment Date Treating Clinician Comments Source Pain in left lower limb Pain in Left Lower Limb Problem Active 03-28 00:00: 00 [facility] Swelling of lower leg Swelling of Lower Leg Problem Active 03-28 00:00: 00 [facility] Acute tear of medial meniscus of left knee Acute Tear of Medial Meniscus of Left Knee Problem Active 03-28 00:00: 00 [facility] Acute tear of lateral meniscus of left knee Acute Tear of Lateral Meniscus of Left Knee Problem Active 03-28 00:00: 00 [facility] Tear of lateral meniscus of knee Tear of Lateral Meniscus of Knee Problem Active 03-14 00:00: 00 [facility] Tear of medial meniscus of knee Tear of Medial Meniscus of Knee Problem Active 02-28 00:00: 00 [facility] Chondromal acia of left knee Chondromal acia of Left Knee Problem Active 02-28 00:00: 00 [facility] Pain of left knee joint Pain of Left Knee Joint Problem Active 02-28 00:00: 00 [facility] Allergies, Adverse Reactions, Alerts Allergy Name Allergy Type Status Severity Reaction(s) Onset Date Inactive Date Treating Clinician Comments Source No Known Drug Allergie s DA Active U 02-28 00:00: 00 [facility] I[facility] Allergy to substanc e Active [facility] Social History Smoking Status Start Date Stop Date Source Never Smoker [facility] Medications Ordered Medication Name Filled Medication Name Start Date Stop Date Current Medication? Ordering Clinician Indication Dosage Frequency Signature (SIG) Comments Components Source azithromyci n 250 mg tablet TAKE 2 TABLETS BY MOUTH TODAY, THEN TAKE 1 TABLET DAILY FOR 4 DAYS azithromyci n 250 mg tablet TAKE 2 TABLETS BY MOUTH TODAY, THEN TAKE 1 TABLET DAILY FOR 4 DAYS No azithromyc in 250 mg tablet TAKE 2 TABLETS BY MOUTH TODAY, THEN TAKE 1 TABLET DAILY FOR 4 DAYS [facility] benzonatate 100 mg capsule TAKE 1 CAPSULE BY MOUTH EVERY 8 HOURS NEEDED FOR COUGH benzonatate 100 mg capsule TAKE 1 CAPSULE BY MOUTH EVERY 8 HOURS NEEDED FOR COUGH No benzonatat e 100 mg capsule TAKE 1 CAPSULE BY MOUTH EVERY 8 HOURS NEEDED FOR COUGH [facility] fluticasone propionate 50 mcg/actuati on nasal spray,suspe nsion 2 PUFFS NASAL EVERY MORNING fluticasone propionate 50 mcg/actuati on nasal spray,suspe nsion 2 PUFFS NASAL EVERY MORNING No fluticason e propionate 50 mcg/actuat ion nasal spray,susp ension 2 PUFFS NASAL EVERY MORNING [facility] montelukast 10 mg tablet TAKE 1 TABLET BY MOUTH EVERY DAY IN THE MORNING montelukast 10 mg tablet TAKE 1 TABLET BY MOUTH EVERY DAY IN THE MORNING No montelukas t 10 mg tablet TAKE 1 TABLET BY MOUTH EVERY DAY IN THE MORNING [facility] mupirocin 2 % topical ointment APPLY TO OPEN SORES ON LEG TWICE A DAY mupirocin 2 % topical ointment APPLY TO OPEN SORES ON LEG TWICE A DAY No mupirocin 2 % topical ointment APPLY TO OPEN SORES ON LEG TWICE A DAY [facility] prednisone 10 mg tablet TAKE 1 TABLET BY MOUTH TWICE A DAY prednisone 10 mg tablet TAKE 1 TABLET BY MOUTH TWICE A DAY No prednisone 10 mg tablet TAKE 1 TABLET BY MOUTH TWICE A DAY [facility] simvastatin 20 mg tablet TAKE 1 TABLET BY MOUTH EVERY DAY IN THE EVENING simvastatin 20 mg tablet TAKE 1 TABLET BY MOUTH EVERY DAY IN THE EVENING No simvastati n 20 mg tablet TAKE 1 TABLET BY MOUTH EVERY DAY IN THE EVENING [facility] triamcinolo ne acetonide 0.1 % topical cream APPLY TWICE DAILY TO RASH ON ABDOMEN UP TO 2 WEEKS/MONTH NEEDED. triamcinolo ne acetonide 0.1 % topical cream APPLY TWICE DAILY TO RASH ON ABDOMEN UP TO 2 WEEKS/MONTH NEEDED. No triamcinol one acetonide 0.1 % topical cream APPLY TWICE DAILY TO RASH ON ABDOMEN UP TO 2 WEEKS/SONJA H NEEDED. [facility] triamcinolo ne acetonide 0.1 % topical ointment APPLY TO AFFECTED AREA TWICE A DAY FOR 2 WEEKS TO A MONTH triamcinolo ne acetonide 0.1 % topical ointment APPLY TO AFFECTED AREA TWICE A DAY FOR 2 WEEKS TO A MONTH No triamcinol one acetonide 0.1 % topical ointment APPLY TO AFFECTED AREA TWICE A DAY FOR 2 WEEKS TO A MONTH [facility] acetaminoph en 300 mg-codeine 30 mg tablet Take 1 tablet every 6 hours by oral route as needed. acetaminoph en 300 mg-codeine 30 mg tablet Take 1 tablet every 6 hours by oral route as needed. No 1 Q6H acetaminop hen 300 mg-codeine 30 mg tablet Take 1 tablet every 6 hours by oral route as needed. [facility] aspirin 81 mg tablet,ian yed release Take 1 tablet every day by oral route as directed. aspirin 81 mg tablet,ian yed release Take 1 tablet every day by oral route as directed. No 1 Q1D aspirin 81 mg tablet,del ayed release Take 1 tablet every day by oral route as directed. [facility] metaxalone 800 mg tablet TAKE 1 TABLET BY MOUTH THREE TIMES DAILY NEEDED metaxalone 800 mg tablet TAKE 1 TABLET BY MOUTH THREE TIMES DAILY NEEDED No metaxalone 800 mg tablet TAKE 1 TABLET BY MOUTH THREE TIMES DAILY NEEDED [facility] methocarbam ol 500 mg tablet Take 1 tablet every 6 hours by oral route as needed. methocarbam ol 500 mg tablet Take 1 tablet every 6 hours by oral route as needed. No 1 Q6H methocarba mol 500 mg tablet Take 1 tablet every 6 hours by oral route as needed. [facility] ondansetron HCl 4 mg tablet Take 1 tablet every 4 hours by oral route as needed. ondansetron HCl 4 mg tablet Take 1 tablet every 4 hours by oral route as needed. No 1 Q4H ondansetro n HCl 4 mg tablet Take 1 tablet every 4 hours by oral route as needed. [facility] acetaminoph en 300 mg-codeine 30 mg tablet TAKE 1 TABLET BY MOUTH EVERY 6 HOURS NEEDED acetaminoph en 300 mg-codeine 30 mg tablet TAKE 1 TABLET BY MOUTH EVERY 6 HOURS NEEDED No acetaminop hen 300 mg-codeine 30 mg tablet TAKE 1 TABLET BY MOUTH EVERY 6 HOURS NEEDED [facility] aspirin 81 mg tablet,ian yed release Take 1 tablet every day by oral route as directed. aspirin 81 mg tablet,ian yed release Take 1 tablet every day by oral route as directed. No 1 Q1D aspirin 81 mg tablet,del ayed release Take 1 tablet every day by oral route as directed. [facility] azithromyci n 250 mg tablet TAKE 2 TABLETS BY MOUTH TODAY, THEN TAKE 1 TABLET DAILY FOR 4 DAYS azithromyci n 250 mg tablet TAKE 2 TABLETS BY MOUTH TODAY, THEN TAKE 1 TABLET DAILY FOR 4 DAYS No azithromyc in 250 mg tablet TAKE 2 TABLETS BY MOUTH TODAY, THEN TAKE 1 TABLET DAILY FOR 4 DAYS [facility] benzonatate 100 mg capsule TAKE 1 CAPSULE BY MOUTH EVERY 8 HOURS NEEDED FOR COUGH benzonatate 100 mg capsule TAKE 1 CAPSULE BY MOUTH EVERY 8 HOURS NEEDED FOR COUGH No benzonatat e 100 mg capsule TAKE 1 CAPSULE BY MOUTH EVERY 8 HOURS NEEDED FOR COUGH [facility] fluticasone propionate 50 mcg/actuati on nasal spray,suspe nsion 2 PUFFS NASAL EVERY MORNING fluticasone propionate 50 mcg/actuati on nasal spray,suspe nsion 2 PUFFS NASAL EVERY MORNING No fluticason e propionate 50 mcg/actuat ion nasal spray,susp ension 2 PUFFS NASAL EVERY MORNING [facility] metaxalone 800 mg tablet TAKE 1 TABLET BY MOUTH THREE TIMES DAILY NEEDED metaxalone 800 mg tablet TAKE 1 TABLET BY MOUTH THREE TIMES DAILY NEEDED No metaxalone 800 mg tablet TAKE 1 TABLET BY MOUTH THREE TIMES DAILY NEEDED [facility] methocarbam ol 500 mg tablet TAKE 1 TABLET BY MOUTH EVERY 6 HOURS NEEDED methocarbam ol 500 mg tablet TAKE 1 TABLET BY MOUTH EVERY 6 HOURS NEEDED No methocarba mol 500 mg tablet TAKE 1 TABLET BY MOUTH EVERY 6 HOURS NEEDED [facility] montelukast 10 mg tablet TAKE 1 TABLET BY MOUTH EVERY DAY IN THE MORNING montelukast 10 mg tablet TAKE 1 TABLET BY MOUTH EVERY DAY IN THE MORNING No montelukas t 10 mg tablet TAKE 1 TABLET BY MOUTH EVERY DAY IN THE MORNING [facility] mupirocin 2 % topical ointment APPLY TO OPEN SORES ON LEG TWICE A DAY mupirocin 2 % topical ointment APPLY TO OPEN SORES ON LEG TWICE A DAY No mupirocin 2 % topical ointment APPLY TO OPEN SORES ON LEG TWICE A DAY [facility] ondansetron HCl 4 mg tablet TAKE 1 TABLET BY MOUTH EVERY 4 HOURS NEEDED ondansetron HCl 4 mg tablet TAKE 1 TABLET BY MOUTH EVERY 4 HOURS NEEDED No ondansetro n HCl 4 mg tablet TAKE 1 TABLET BY MOUTH EVERY 4 HOURS NEEDED [facility] prednisone 10 mg tablet TAKE 1 TABLET BY MOUTH TWICE A DAY prednisone 10 mg tablet TAKE 1 TABLET BY MOUTH TWICE A DAY No prednisone 10 mg tablet TAKE 1 TABLET BY MOUTH TWICE A DAY [facility] simvastatin 20 mg tablet TAKE 1 TABLET BY MOUTH EVERY DAY IN THE EVENING simvastatin 20 mg tablet TAKE 1 TABLET BY MOUTH EVERY DAY IN THE EVENING No simvastati n 20 mg tablet TAKE 1 TABLET BY MOUTH EVERY DAY IN THE EVENING [facility] triamcinolo ne acetonide 0.1 % topical cream APPLY TWICE DAILY TO RASH ON ABDOMEN UP TO 2 WEEKS/MONTH NEEDED. triamcinolo ne acetonide 0.1 % topical cream APPLY TWICE DAILY TO RASH ON ABDOMEN UP TO 2 WEEKS/MONTH NEEDED. No triamcinol one acetonide 0.1 % topical cream APPLY TWICE DAILY TO RASH ON ABDOMEN UP TO 2 WEEKS/SONJA H NEEDED. [facility] triamcinolo ne acetonide 0.1 % topical ointment APPLY TO AFFECTED AREA TWICE A DAY FOR 2 WEEKS TO A MONTH triamcinolo ne acetonide 0.1 % topical ointment APPLY TO AFFECTED AREA TWICE A DAY FOR 2 WEEKS TO A MONTH No triamcinol one acetonide 0.1 % topical ointment APPLY TO AFFECTED AREA TWICE A DAY FOR 2 WEEKS TO A MONTH [facility] benzonatate 200 mg capsule TAKE 1 CAPSULE BY MOUTH EVERY 8 HOURS NEEDED benzonatate 200 mg capsule TAKE 1 CAPSULE BY MOUTH EVERY 8 HOURS NEEDED No benzonatat e 200 mg capsule TAKE 1 CAPSULE BY MOUTH EVERY 8 HOURS NEEDED [facility] cefuroxime axetil 500 mg tablet TAKE 1 TABLET BY MOUTH TWICE A DAY FOR 7 DAYS cefuroxime axetil 500 mg tablet TAKE 1 TABLET BY MOUTH TWICE A DAY FOR 7 DAYS No cefuroxime axetil 500 mg tablet TAKE 1 TABLET BY MOUTH TWICE A DAY FOR 7 DAYS [facility] fluticasone propionate 50 mcg/actuati on nasal spray,suspe nsion 2 PUFFS NASAL EVERY MORNING fluticasone propionate 50 mcg/actuati on nasal spray,suspe nsion 2 PUFFS NASAL EVERY MORNING No fluticason e propionate 50 mcg/actuat ion nasal spray,susp ension 2 PUFFS NASAL EVERY MORNING [facility] metaxalone 800 mg tablet TAKE 1 TABLET BY MOUTH THREE TIMES DAILY NEEDED metaxalone 800 mg tablet TAKE 1 TABLET BY MOUTH THREE TIMES DAILY NEEDED No metaxalone 800 mg tablet TAKE 1 TABLET BY MOUTH THREE TIMES DAILY NEEDED [facility] methocarbam ol 500 mg tablet TAKE 1 TABLET BY MOUTH EVERY 6 HOURS NEEDED methocarbam ol 500 mg tablet TAKE 1 TABLET BY MOUTH EVERY 6 HOURS NEEDED No methocarba mol 500 mg tablet TAKE 1 TABLET BY MOUTH EVERY 6 HOURS NEEDED [facility] montelukast 10 mg tablet TAKE 1 TABLET BY MOUTH EVERY DAY IN THE MORNING montelukast 10 mg tablet TAKE 1 TABLET BY MOUTH EVERY DAY IN THE MORNING No montelukas t 10 mg tablet TAKE 1 TABLET BY MOUTH EVERY DAY IN THE MORNING [facility] mupirocin 2 % topical ointment APPLY A SMALL AMOUNT TO THE AFFECTED AREA BY TOPICAL ROUTE 2 TIMES PER DAY mupirocin 2 % topical ointment APPLY A SMALL AMOUNT TO THE AFFECTED AREA BY TOPICAL ROUTE 2 TIMES PER DAY No mupirocin 2 % topical ointment APPLY A SMALL AMOUNT TO THE AFFECTED AREA BY TOPICAL ROUTE 2 TIMES PER DAY [facility] ondansetron HCl 4 mg tablet TAKE 1 TABLET BY MOUTH EVERY 4 HOURS NEEDED ondansetron HCl 4 mg tablet TAKE 1 TABLET BY MOUTH EVERY 4 HOURS NEEDED No ondansetro n HCl 4 mg tablet TAKE 1 TABLET BY MOUTH EVERY 4 HOURS NEEDED [facility] oseltamivir 75 mg capsule oseltamivir 75 mg capsule No oseltamivi r 75 mg capsule [facility] simvastatin 20 mg tablet TAKE 1 TABLET BY MOUTH EVERY DAY IN THE EVENING simvastatin 20 mg tablet TAKE 1 TABLET BY MOUTH EVERY DAY IN THE EVENING No simvastati n 20 mg tablet TAKE 1 TABLET BY MOUTH EVERY DAY IN THE EVENING [facility] fluticasone propionate 50 mcg/actuati on nasal spray,suspe nsion 2 PUFFS NASAL EVERY MORNING fluticasone propionate 50 mcg/actuati on nasal spray,suspe nsion 2 PUFFS NASAL EVERY MORNING No fluticason e propionate 50 mcg/actuat ion nasal spray,susp ension 2 PUFFS NASAL EVERY MORNING [facility] metaxalone 800 mg tablet TAKE 1 TABLET BY MOUTH THREE TIMES DAILY NEEDED metaxalone 800 mg tablet TAKE 1 TABLET BY MOUTH THREE TIMES DAILY NEEDED No metaxalone 800 mg tablet TAKE 1 TABLET BY MOUTH THREE TIMES DAILY NEEDED [facility] methocarbam ol 500 mg tablet TAKE 1 TABLET BY MOUTH EVERY 6 HOURS NEEDED methocarbam ol 500 mg tablet TAKE 1 TABLET BY MOUTH EVERY 6 HOURS NEEDED No methocarba mol 500 mg tablet TAKE 1 TABLET BY MOUTH EVERY 6 HOURS NEEDED [facility] montelukast 10 mg tablet TAKE 1 TABLET BY MOUTH EVERY DAY IN THE MORNING montelukast 10 mg tablet TAKE 1 TABLET BY MOUTH EVERY DAY IN THE MORNING No montelukas t 10 mg tablet TAKE 1 TABLET BY MOUTH EVERY DAY IN THE MORNING [facility] mupirocin 2 % topical ointment APPLY A SMALL AMOUNT TO THE AFFECTED AREA BY TOPICAL ROUTE 2 TIMES PER DAYx 7 days mupirocin 2 % topical ointment APPLY A SMALL AMOUNT TO THE AFFECTED AREA BY TOPICAL ROUTE 2 TIMES PER DAYx 7 days No mupirocin 2 % topical ointment APPLY A SMALL AMOUNT TO THE AFFECTED AREA BY TOPICAL ROUTE 2 TIMES PER DAYx 7 days [facility] simvastatin 20 mg tablet TAKE 1 TABLET BY MOUTH EVERY DAY IN THE EVENING simvastatin 20 mg tablet TAKE 1 TABLET BY MOUTH EVERY DAY IN THE EVENING No simvastati n 20 mg tablet TAKE 1 TABLET BY MOUTH EVERY DAY IN THE EVENING [facility] tadalafil 20 mg tablet TAKE 1 TABLET BY MOUTH ONCE DAILY NEEDED tadalafil 20 mg tablet TAKE 1 TABLET BY MOUTH ONCE DAILY NEEDED No tadalafil 20 mg tablet TAKE 1 TABLET BY MOUTH ONCE DAILY NEEDED [facility] tramadol 50 mg tablet TAKE 1 TABLET BY MOUTH EVERY 6 HOURS FOR 7 DAYS tramadol 50 mg tablet TAKE 1 TABLET BY MOUTH EVERY 6 HOURS FOR 7 DAYS No tramadol 50 mg tablet TAKE 1 TABLET BY MOUTH EVERY 6 HOURS FOR 7 DAYS [facility] acetaminoph en 300 mg-codeine 30 mg tablet TAKE 1 TABLET BY MOUTH EVERY 6 HOURS NEEDED acetaminoph en 300 mg-codeine 30 mg tablet TAKE 1 TABLET BY MOUTH EVERY 6 HOURS NEEDED No acetaminop hen 300 mg-codeine 30 mg tablet TAKE 1 TABLET BY MOUTH EVERY 6 HOURS NEEDED [facility] Vital Signs Vital Name Observation Time Observation Value Comments S ource BP Diastolic 2023-05-22 00:00:00 72 mm[Hg] [facility] BP Systolic 2023-05-22 00:00:00 153 mm[Hg] [facility] BMI (Body Mass Index) 2023-05-22 00:00:00 34 kg/m2 [facility] Body Weight 2023-05-22 00:00:00 265 [lb_av] [facility] Height 2023-05-22 00:00:00 74 [in_i] [facility] BP Diastolic 2022-09-03 00:00:00 81 mm[Hg] [facility] Height 2022-09-03 00:00:00 74 [in_i] [facility] BMI (Body Mass Index) 2022-09-03 00:00:00 34.3 kg/m2 [facility] BP Systolic 2022-09-03 00:00:00 145 mm[Hg] [facility] Body Weight 2022-09-03 00:00:00 267.3 [lb_av] [facility] Height 2022-03-28 00:00:00 73 [in_i] [facility] BMI (Body Mass Index) 2022-03-28 00:00:00 35.6 kg/m2 [facility] Body Weight 2022-03-28 00:00:00 270 [lb_av] [facility] Height 2022-02-28 00:00:00 73 [in_i] [facility] BMI (Body Mass Index) 2022-02-28 00:00:00 35.6 kg/m2 [facility] Body Weight 2022-02-28 00:00:00 270 [lb_av] [facility] Procedures Procedure Date / Time Performed Performing Clinicia n Source US, doppler, venous 2022-03-28 00:00:00 [facility] Procedure on Shoulder [facility] Hernia [facility] Procedure on Knee [facility] Encounters Start Date/Time End Date/Time Encounter Type Admission Type Attending Clinicians Care Facility Care Department Encounter ID Source 2022-03-20 11:55:00 Inpatient Darnell Hinojosa HCATO HCATO [id number] [facility] 2023-05-22 00:00:00 2023-05-22 00:00:00 Outpatient Yan_W [facility] [id number] [facility] 2023-05-22 00:00:00 2023-05-22 00:00:00 Dg Cantu MD: [address], [address], [place] [address] , Ph. [facility] Otolaryngol [facility]gy-MOB [id number] [facility] 2023-03-14 00:00:00 2023-03-14 00:00:00 Outpatient JHONATHAN_David Craig AOSM AOSM [id number] [facility] 2023-03-14 00:00:00 2023-03-14 00:00:00 Outpatient Niels Craig AOSM AOSM [id number] [facility] 2022-09-03 00:00:00 2022-09-03 00:00:00 Outpatient Yan_W [facility] [id number] [facility] 2022-09-03 00:00:00 2022-09-03 00:00:00 Outpatient Pepe_W [facility] [id number] [facility] 2022-09-03 00:00:00 2022-09-03 00:00:00 Dg Cantu MD: [address], [address], [place] [address] , Ph. [facility]-MOB [id number] [facility] 2022-03-28 12:14:00 2022-03-28 12:14:00 Outpatient Niels Craig AOSM AOSM [id number] [facility] 2022-03-28 12:14:00 2022-03-28 12:14:00 Outpatient FOG_Mathews _Vasil_MD AOSM AOSM [id number] [facility] 2022-03-28 11:28:00 2022-03-28 11:28:00 Outpatient Darnell HinojosaTO RADI [id number] [facility] 2022-03-28 00:00:00 2022-03-28 00:00:00 Outpatient Darnell Thacker AOSM AOSM [id number] 2022-03-28 00:00:00 2022-03-28 00:00:00 Darnell Thacker MD: [address] [place] [address] , Ph. [phone] [facility] [place] [facility] [id number] [facility] 2022-03-14 03:03:00 2022-03-14 03:03:00 Outpatient FOG_Mathews _Vasil_MD AOSM AOSM [id number] [facility] 2022-03-13 09:50:00 2022-03-13 09:50:00 Outpatient FOG_Mathews _Vasil_MD AOSM AOSM [id number] [facility] 2022-03-09 08:57:00 2022-03-09 08:57:00 Outpatient Darnell Hinojosa RYANTO DAYS [id number] [facility] 2022-03-09 08:57:00 2022-03-09 08:57:00 Outpatient Darnell Hinojosa HCATO [id number] [facility] 2022-03-09 00:00:00 2022-03-09 00:00:00 Outpatient KedarDarnell AOSM AOSM [id number] 2022-03-09 00:00:00 2022-03-09 00:00:00 Darnell Thacker MD: [address] [place] [address] , Ph. [phone] [facility] [place] [facility] [id number] [facility] 2022-02-28 12:43:00 2022-02-28 12:43:00 Outpatient FOG_Mathews _Kerrieil_ AOSM AOSM [id number] [facility] 2022-02-28 12:43:00 2022-02-28 12:43:00 Outpatient FOG_Mathews _Vasil_ AO AOSM [id number] [facility] 2022-02-28 00:00:00 2022-02-28 00:00:00 Darnell Thacker MD: [address] [place] [address] , Ph. [phone] [facility] [place] [facility] [id number] [facility] 2022-02-28 00:00:00 2022-02-28 00:00:00 Outpatient Darnell Thacker [facility] AO [id number] 2022-01-15 11:35:00 2022-01-15 11:35:00 Outpatient FOG_Mathews _Vasil_ AO AO [id number] [facility] Results Test Description Test Time Test Comments Results Resul t Comments Source - [facility] UNI/LTD 2022-03-28 13:07:00 [facility] 1950 Sex: M Patient Name: JASON WREN Unit No: [id number] EXAMS: CPT CODE: [id number] [facility] UNI/LTD 00891 LEFT LOWER EXTREMITY VENOUS DOPPLER DIAGNOSIS: No [...] Technologist: BUNNY FRASER RDMS, RVT Transcribed D/ (7007) tKENNEDYL [facility] NAME: JASON WREN [address] [facility] PHYS: Darnell Sanchez MD : 1950 AGE: 71 SEX: M [place] [address] LOC: Y.RAD PHONE #: [phone] EXAM DATE: 03/28/2022 STATUS: REG CLI FAX #: [phone] RAD #: D/C DT PAGE 1 Signed Report Patient Name: JASON WREN Unit No: [id number] EXAMS: CPT CODE: [id number] [employer] UNI/LTD 30396 (Continued) Orig Print D/T: S: 03/28/2022 (1310) [facility] NAME: JASON WREN [address] [facility] PHYS: Darnell Sanchez MD : 1950 AGE: 71 SEX: M [place] [address] LOC: Y.RAD PHONE #: [phone] EXAM DATE: 03/28/2022 STATUS: REG CLI FAX #: [phone] RAD #: D/C DT PAGE 2 Signed Report CBC W/AUTO [id number] 15:07:00* Test Item Value Reference Range Interpretation Comme nts WHITE BLOOD CELL (test code = WBC) [...] 27-34 N MEAN CELL HGB CONCENTRATION (test code = MCHC) 34.4 g/dL 30.8-34.1 H RED CELL DISTRIBUTION WIDTH (test code = RDW) 13.0 % 11-16 N PLT (test code = PLT) 227 K/mm3 130-400 N MEAN PLATELET VOLUME (test c ode = MPV) 10.0 fL 8.9-12.1 N NEUTROPHIL % (test code = NT%) 56.3 [...] K/mm3 0.02-0.10 N MANUAL DIFF REQUIRED (test c ode = MDIFF) NO MANUAL DIFF NUCLEATED RED BLOOD CELL (te st code = NRBC) 0 % 0-0 N Notes Date/Time Note Provider Source 2022-03-09 13:48:00 [id number] [address] PATIENT NAME: JASON WREN ADMIT DATE: 03/09/22 ACCOUNT NO: [id number] ROOM NO: AGE: 71 REPORT TYPE: OPERATIVE REPORT SEX: M ADMITTING PHYSICIAN: ATTENDING PHYSICIAN:Darnell Thacker MD OPERATION DATE: 03/09/2022 PREOPERATIVE DIAGNOSIS: Left knee medial meniscus tear. POSTOPERATIVE DIAGNOSES: 1. Left knee medial meniscus tear. 2. Left knee lateral meniscus tear. PROCEDURES: Left knee arthroscopy with partial medial and lateral meniscectomy. SURGEON: Darnell Thacker MD [employer] STARCHER: ANESTHESIA: General. DESCRIPTION OF FINDINGS AND INDICATIONS FOR PROCEDURE: The patient is a 71-year-old male with left knee pain and mechanical symptoms, progressive in nature, unresponsive to conservative measures. Clinical and radiologic evaluation is consistent with medial meniscus tear. He was counseled as to the risks and benefits of the recommended treatment of operative intervention including but not limited to bleeding, infection, neurovascular injury, persistent pain, need for additional procedure, re-tear, loss of function, recurrence of his condition, development or progression of arthritis, as well as anesthetic risks including but not limited to change in blood pressure, deep venous thrombosis, pulmonary embolism, heart attack, stroke, or . The patient voiced understanding and wished to proceed. PROCEDURE IN DETAIL: After obtaining informed consent, the left knee was marked by me in the preoperative holding area. The patient was brought to the operating suite where satisfactory anesthesia was established by the Anesthesia Service. The patient was placed in the supine position on the operating room table with all bony prominences well padded. A well-padded tourniquet was placed around the left proximal thigh. Left lower extremity was prepped and draped in usual sterile fashion and sterile drapes were applied. Timeout was called prior to commencing of procedure, verifying the correct site and correct side. The patient received preoperative antibiotics within 1 hour of commencing of procedure. Examination under anesthesia demonstrated full range of motion with no ligamentous patholaxity. At this point, diagnostic arthroscopy ensued through proximal medial parapatellar inflow portal. Arthroscope was introduced through the anterolateral parapatellar portal. Patellofemoral compartment was inspected. There was no high-grade articular cartilage change in patellofemoral PATIENT NAME: JASON WREN compartment. There was no loose body present in lateral or medial gutter. Medial compartment was entered. Medial parapatellar portal was established under spinal needle guidance. Upon entering the medial compartment, there was diffuse chondrocalcinosis of the meniscus and medial tibial plateau. There was also a complex tear of the medial meniscus. This was unstable upon probing and was resected to a stable base using a combination of upbiting, straight-biting, and curved-biting baskets. This was performed with the arthroscope both in the anterolateral as well as anteromedially. This was contoured with motorized shaver. After this had been completed via arthroscope anterolaterally, there was noted to be no high-grade articular cartilage change on the femoral condyle. Intercondylar notch was entered. ACL was intact. Lateral compartment was entered. There was a tear of the posterior horn on lateral meniscus. This was unstable upon probing and resected to a stable base using a combination of upbiting and straight-biting baskets. This was contoured with motorized shaver. At completion of partial lateral meniscectomy, final images were obtained including trochlear chondromalacia with chondrocalcinosis. Excess fluid was extravasated from the knee. All arthroscopic instruments were removed. A total of 60 mL of 0.25% Marcaine without epinephrine was instilled into the sergio-incisional tissues. Wounds were then closed using interrupted nylon suture. Sterile dressing of Xeroform, 4x4 were applied and secured with Kerlix and Adan wrap. Tourniquet was inflated at the outset, was deflated with brisk return of capillary refill to the lower extremity. He tolerated the procedure well, was extubated, transferred to [facility], and onto the recovery room in satisfactory condition. ESTIMATED BLOOD LOSS: Minimal. INTRAVENOUS FLUIDS: Maintenance. COMPLICATIONS: There were no known intraoperative complications. Dictated By: Darnell Thacker MD WT: OP:DACIA/LAINA/FABI Conf#: [id number]/DID#: [id number] Authenticated by Darnell Thacker MD On 03/11/2022 09:45:57 AM at 0945 PATIENT NAME: JASON WREN [facility] [place] 2022-02-28 13:05:00 [id number] [place] [id number] PATIENT NAME: JASON WREN ADMIT DATE: ACCOUNT NO: [id number] ROOM NO: AGE: 71 REPORT TYPE: ELECTROCARDIOGRAM SEX: M ADMITTING PHYSICIAN: ATTENDING PHYSICIAN:Darnell Thacker MD Order: [id number] Test Reason : PRE-OP CLEARANCE >50 Test Date/Time Stamp: SatFeb 28 2022 13:05:44 Blood Pressure : / mmHG Vent. Rate : 061 BPM Atrial Rate : 061 BPM P-R Int : 182 ms QRS Dur : 090 ms QT Int : 400 ms P-R-T Axes : 038 -34 048 degrees QTc Int : 402 ms Normal sinus rhythm Left axis deviation Abnormal ECG No previous ECGs available Confirmed by MELANI BERRY MD ([id number]) on 03/01/2022 7:42:18 PM Referred By: Darnell Thacker Confirmed by:MELANI BERRY MD PATIENT NAME: JASON WREN [facility] [place]
[2024-12-23 21:21] LABS: Absolute Basophils 0.1 K/uL (0-0.5); Absolute Eosinophils 0.1 K/uL (0-0.5); Absolute Lymphocytes (CBC) 2.2 K/uL (0.7-4.9); Absolute Monocytes 0.7 K/uL (0.1-1.3); Absolute Neutrophil 5.1 K/uL (1.8-8.0); Basophils % 0.8 % (0-1.3); Eosinophils % 1.6 % (0-4.4); Hematocrit 43.8 % (39.6-49.0); Hemoglobin 14.9 g/dL (13.6-17.9); Lymphocytes % 26.8 % (15.3-44.8); MCH 32.5 pg (27.0-35.0); MCHC 33.9 g/dL (32.0-36.0); MCV 95.9 fL (80-100); MPV 7.9 fL (7.6-11.3); Monocytes % 8.5 % (3.3-12.3); Neutrophils % 62.3 % (41.7-73.7); Nucleated Red Blood Cells % 0.1 % (0-0); Platelets 221 thou/uL (152-406); RBC Red Blood Cell Count 4.56 M/uL (4.33-5.43); Red Cell Distribution Width 13.3 % (12.1-15.2)
[2024-12-23 21:37] LABS: Anion Gap 8.8 mEq/L (5.0-15.0); Magnesium 2.4 mg/dL (1.6-2.4); Potassium 3.8 mEq/L (3.5-5.1); Troponin High Sensitivity 25.2 pg/mL (<58.9)
--- NOTE | 2024-12-23 22:18 | RAD REPORT ---
Procedure: Chest Single View HISTORY: Arrhythmia. Hypotension. COMPARISON: September 2024 FINDINGS: The lungs appear clear of acute infiltrate. No significant pleural effusion noted. The heart is borderline enlarged. . IMPRESSION: No acute abnormality is displayed.
[2024-12-23] MEDS ORDERED: NA CHLORIDE 0.9% 1,000 ML ONE (22:45)
--- NOTE | 2024-12-23 23:09 | ER ---
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 Coronavirus screen: At this time, the client does not indicate any symptoms associated with coronavirus-19. Ebola Screen: No symptoms or risks identified at this time. Initial Sepsis Screen: Does the patient meet any 2 criteria? No. Patient's initial sepsis screen is negative. Does the patient have a suspected source of infection? No. Patient's initial sepsis screen is negative. Risk Assessment: Do you want to hurt yourself or someone else? Patient reports no desire to harm self or others. Onset of symptoms was December 23, 2024. 20:37 Method Of Arrival: Ambulatory iw 20:37 Acuity: ERIK 2 iw Historical: - Allergies: 20:39 Aquaphor; iw - PMHx: 20:39 Hypercholesterolemia; squamous cell carcinoma; iw - Immunization history:: Adult Immunizations not up to date. - Infectious Disease History:: Denies. - Social history:: Smoking status: Patient reports use of chewing tobacco. Screenin:40 [facility] ED Fall Risk Assessment (Adult) History of falling in the last 3 months, cp4 including since admission No falls in past 3 months (0 pts) Confusion or Disorientation No (0 pts) Intoxicated or Sedated No (0 pts) Impaired Gait No (0 pts) Mobility Assist Device Used No (0 pt) Altered Elimination No (0 pt) Score/Fall Risk Level 0 - 2 = Low Risk Oriented to surroundings, Maintained a safe environment, Assessed \T\ reinforced patient's understanding of fall precautions, Hourly rounding (assess needs \T\ fall precautionary measures) done. Abuse screen: Denies threats or abuse. Denies injuries from another. Nutritional screening: No deficits noted. Tuberculosis screening: No symptoms or risk factors identified. Assessment: 20:40 General: Appears in no apparent distress. uncomfortable, Behavior is calm, cooperative, cp4 appropriate for age. 20:40 Pain: Denies pain. cp4 20:40 Neuro: Level of Consciousness is awake, alert, obeys commands, Oriented to person, cp4 place, time, situation. Cardiovascular: Patient's skin is warm and dry. Rhythm is sinus tachycardia. 20:40 Respiratory: Airway is patent Respiratory effort is even, unlabored. GI: No signs cp4 and/or symptoms were reported involving the gastrointestinal system. : No signs and/or symptoms were reported regarding the genitourinary system. EENT: No signs and/or symptoms were reported regarding the EENT system. Derm: No signs and/or symptoms reported regarding the dermatologic system. Musculoskeletal: No signs and/or symptoms reported regarding the musculoskeletal system. Vital Signs: 20:37 BP 115 / 96; Pulse 136; Resp 19; Temp 98.5; Pulse Ox 100% on R/A; Weight 111.58 kg; iw Height 6 ft. 1 in. ; 22:43 BP 139 / 63; Pulse 60; Resp 18; Pulse Ox 100% ; cp4 23:24 BP 156 / 83; Pulse 60; Resp 18; Pulse Ox 99% ; cp4 20:37 Body Mass Index 32.46 (111.58 kg, 185.42 cm) iw ED Course: 20:07 Patient arrived in ED. gm2 20:37 Adeline Sarabia MD is Attending Physician. sw6 20:39 Triage completed. iw 20:40 Arm band placed on. iw 20:40 Bed in low position. Call light in reach. Side rails up X 1. Client placed on cp4 continuous cardiac and pulse oximetry monitoring. NIBP monitoring applied. manager monitoring on. Pulse ox on. NIBP on. 20:40 No provider procedures requiring assistance completed. Patient maintains SpO2 cp4 saturation greater than 95% on room air. 20:49 EKG done, by ED staff. vk 21:12 Initial lab(s) drawn, by me, sent to lab. Inserted saline lock: 20 gauge in left vk antecubital area, using aseptic technique. Blood collected. Flushed with 10 mL NS. 21:12 Basic Metabolic Panel Sent. vk 21:12 CBC with Diff Sent. vk 21:12 Magnesium Sent. vk 21:12 Troponin HS Sent. vk 22:12 XRAY Chest (1 view) In Process Unspecified. EDMS 23:24 Shantel Cadena is Primary Nurse. cp4 23:25 Provided Education on: SVT. cp4 23:25 intact, bleeding controlled, No redness/swelling at site. Pressure dressing applied. cp4 Administered Medications: 21:39 Not Given (Physician Discretion): metoprolol5 mg IVP every 5 minutes; Hold for SBP < cp4 100 or HR < 60. x3 22:47 Drug: NS 0.9% IV 1000 ml IV at 1000 ml once; to be given as a bolus over 60 minutes cp4 Route: IV; Rate: 1000 ml; Site: left antecubital; 23:18 Follow up: Response: No adverse reaction; IV Status: Completed infusion cp4 Medication: 20:40 VIS not applicable for this client. cp4 Outcome: 23:09 Discharge ordered by . sw6 23:25 Discharged to home ambulatory, cp4 23:25 Condition: stable 23:25 Discharge instructions given to patient, family, Instructed on discharge instructions, follow up and referral plans. Demonstrated understanding of instructions, follow-up care, 23:26 Patient left the ED. cp4 Signatures: Dispatcher [employer] EDMS Gracy Sarabia, PARMINDER RN Shantel Hong cp4 Rosio Rosales Vivian vk Williams, Sandra, MD MD sw6
--- NOTE | 2024-12-23 23:10 | EDPHYS ---
Physician Documentation [facility] Name: Kai Peres Age: 74 yrs Sex: Male : 1950 Arrival Date: 12/23/2024 Time: 20:03 Bed 4 Private MD: ED Physician Adeline Sarabia HPI: 12/23 20:59 This 74 yrs old Male presents to ER via Ambulatory with complaints of sw6 Dizziness, low blood pressure, head tingling, Chest Pain, Possible Cardiac Related, history of svt. 20:59 The patient presents with generalized weakness. Onset: The symptoms/episode sw6 began/occurred 4:30 PM today.. Context: occurred While working outside in the yard.. Modifying factors: The symptoms are alleviated by Sitting and resting, the symptoms are aggravated by standing up. Associated signs and symptoms: Pertinent positives: near-syncope, Pertinent negatives: abdominal pain, blurred vision, focal weakness, headache, nausea, numbness, shortness of breath, syncope. Patient's baseline: Neuro: alert and fully oriented, Motor: no deficits, Ambulation: walks without assistance. The patient has experienced similar episodes in the past, a few times. The patient presents from home with family for evaluation for feeling generalized weakness that started around 430 this afternoon after he been working outside in the yard for about 1.5 hours. He denies doing any strenuous activity outside. He reports he was moving pots and planting things. He did have a brief episode of chest discomfort but reports that has since resolved. No shortness of breath. No fevers or chills. No nausea or vomiting. He reports when he first gets up he feels lightheaded and needs to head on something but after several seconds that resolves and he is fine. No syncope. He does have a history of recently diagnosed SVT for which she takes metoprolol. He admits to compliance with his medication. He also takes cholesterol medication as well as Singulair for allergies. He does not smoke. He did eat and drink today. No dysuria. No cough or congestion. No sick contacts. Here for evaluation.. Historical: - Allergies: 20:39 Aquaphor; iw - PMHx: 20:39 Hypercholesterolemia; squamous cell carcinoma; iw - Immunization history:: Adult Immunizations not up to date. - Infectious Disease History:: Denies. - Social history:: Smoking status: Patient reports use of chewing tobacco. ROS: 20:59 Cardiovascular: Negative for chest pain, palpitations, and edema, Respiratory: Negative sw6 for shortness of breath, cough, wheezing, and pleuritic chest pain, Abdomen/GI: Negative for abdominal pain, nausea, vomiting, diarrhea, and constipation, Skin: Negative for injury, rash, and discoloration, Neuro: Negative for headache, weakness, numbness, tingling, and seizure, 20:59 Constitutional: Positive for malaise, 20:59 All other systems are negative, Exam: 20:57 ECG was reviewed by the Attending Physician. sw6 20:59 Constitutional: This is a well developed, well nourished patient who is awake, alert, sw6 and in no acute distress. Head/Face: Normocephalic, atraumatic. Eyes: Pupils equal round and reactive to light, extra-ocular motions intact. Lids and lashes normal. Conjunctiva and sclera are non-icteric and not injected. Cornea within normal limits. Periorbital areas with no swelling, redness, or edema. Respiratory: Lungs have equal breath sounds bilaterally, clear to auscultation and percussion. No rales, rhonchi or wheezes noted. No increased work of breathing, no retractions or nasal flaring. Abdomen/GI: Soft, non-tender, with normal bowel sounds. No distension or tympany. No guarding or rebound. No evidence of tenderness throughout. MS/ Extremity: Pulses equal, no cyanosis. Neurovascular intact. Full, normal range of motion. 20:59 Cardiovascular: Rate: tachycardic, Rhythm: irregular, Heart sounds: normal, normal S1and S2, Edema: is not appreciated, JVD: is not appreciated, Vital Signs: 20:37 BP 115 / 96; Pulse 136; Resp 19; Temp 98.5; Pulse Ox 100% on R/A; Weight 111.58 kg; iw Height 6 ft. 1 in. ; 22:43 BP 139 / 63; Pulse 60; Resp 18; Pulse Ox 100% ; cp4 23:24 BP 156 / 83; Pulse 60; Resp 18; Pulse Ox 99% ; cp4 20:37 Body Mass Index 32.46 (111.58 kg, 185.42 cm) iw MDM: 20:37 Medical Screening Exam initiated 23:09 Data reviewed: lab test result(s), EKG, radiologic studies, plain films. ED course: The sw6 patient is doing well in the ER. Prior to the administration of IV metoprolol here in the ER he did self convert from SVT back to normal sinus rhythm. He reports he is now feeling back to his normal self and the generalized weakness has resolved. He does have a history of SVT and reports his last episode was in October. He does have a scientist immunology that he follows up with and is on metoprolol for this. He is in the process of following up with an supervisor of research for possible ablation for his SVT. I did have a lengthy discussion with the patient, his as well as the rest of his family about the possibility of admission versus outpatient follow-up with his scientist immunology. They do feel comfortable and desired to be discharged home with outpatient follow-up with his scientist immunology. Advised the patient to return to the ER or to dial 911 if his symptoms return. He remained stable here in the ER and is okay for discharge home with PCP follow-up.. 12/23 20:57 Order name: Basic Metabolic Panel; Complete Time: 22:12 12/23 22:12 Interpretation: Within normal limits. 12/23 20:57 Order name: CBC with Diff; Complete Time: 21:23 12/23 21:23 Interpretation: Within normal limits. 12/23 20:57 Order name: Magnesium; Complete Time: 22:12 12/23 22:12 Interpretation: Within normal limits. 12/23 20:57 Order name: Troponin HS; Complete Time: 22:12 12/23 22:12 Interpretation: Within normal limits. 12/23 20:57 Order name: XRAY Chest (1 view); Complete Time: 22:56 12/23 22:56 Interpretation: No acute disease. 12/23 20:57 Order name: Cardiac monitoring; Complete Time: 20:59 12/23 20:57 Order name: EKG - Nurse/Tech; Complete Time: 20:59 12/23 20:57 Order name: IV Saline Lock; Complete Time: 21:12 12/23 20:57 Order name: Labs collected and sent; Complete Time: 21:12 /26 20:57 Order name: O2 Per Protocol; Complete Time: 21:12 6 12/23 20:57 Order name: O2 Sat Monitoring; Complete Time: 20:59 12/23 20:57 Order name: Orthostatic Blood Pressure; Complete Time: 21:14 EC:57 Rate is 134 beats/min. Rhythm is irregular, SVT. QRS interval is normal. QT interval is sw6 normal. No Q waves. T waves are Normal. No ST changes noted. Administered Medications: 21:39 Not Given (Physician Discretion): metoprolol5 mg IVP every 5 minutes; Hold for SBP < cp4 100 or HR < 60. x3 22:47 Drug: NS 0.9% IV 1000 ml IV at 1000 ml once; to be given as a bolus over 60 minutes cp4 Route: IV; Rate: 1000 ml; Site: left antecubital; 23:18 Follow up: Response: No adverse reaction; IV Status: Completed infusion cp4 Disposition Summary: 12/23/24 23:09 Discharge Ordered Notes: Location: Home sw6 Problem: an ongoing problem sw6 Symptoms: have improved sw6 Condition: Stable sw6 Diagnosis - Supraventricular tachycardia sw6 Discharge Instructions: - Discharge Summary Sheet sw6 - Supraventricular Tachycardia, Adult sw6 - Supraventricular Tachycardia, Adult, [id number] sw6 Forms: - Medication Reconciliation Form sw6 - Antibiotic Education sw6 - Prescription Opioid Use sw6 - Patient Portal Instructions sw6 - Leadership Thank You Letter 6 Signatures: Dispatcher [employer] Gracy Kwon RN RN iw Potter, Christina cp4 Adeline Sarabia MD MD sw6 Corrections: (The following items were deleted from the chart) 20:57 20:57 Chest Single View+RAD.RAD.BRZ ordered. NIELS BOWSER
[2024-12-24 00:13] VITALS: TEMP 98.5
[2024-12-24 00:15] VITALS: BP 156/83; O2SAT 99
--- NOTE | 2024-12-24 08:35 | EKG ---
Test Date: 2024-12-23 Test Time: 20:46:09 Technology Architect: SANA MEASUREMENT RESULTS: Intervals: Rate: 134 NM: QRSD: 102 QT: 302 QTc: 450 Daisy: P: NM: QRS: -10 T: 51 INTERPRETIVE STATEMENTS: Supraventricular tachycardia Otherwise normal ECG Compared to ECG 10/26/2024 14:34:30 Sinus rhythm no longer present Electronically Signed On 12-24-24 08:34:56 CDT by Michael Messer
== END 2024-12-23 23:26 | disposition home or self-care (01) ==
LOC: ER 20:03
DX: I47.10 Supraventricular tachycardia, unspecified (principal); R07.9 Chest pain, unspecified; R53.81 Other malaise; E78.00 Pure hypercholesterolemia, unspecified; F17.220 Nicotine dependence, chewing tobacco, uncomplicated
CPT/HCPCS: 85025; 80048; 36415; 83735; 84484; 71045; J7030; 93005